=== PATIENT | male | born 1970 | race African-American/Black ===

== ENCOUNTER 2018-04-06 14:56 | Emergency (ER) | payer SELFPAY ==
--- NOTE | 2018-04-06 15:56 | ER ---
Nurse's Notes [facility] Name: Sixto Arredondo Age: 47 yrs Sex: Male : 1970 Arrival Date: 04/06/2018 Time: 14:59 Bed 15 Private MD: None, None Diagnosis: Mild dehydration Presentation: 04/06 15:14 Presenting complaint: Patient states: Headache and nausea this AM, that has resolved. aj "I just wanted to get checked out". Transition of care: patient was not received from another setting of care. Onset of symptoms was April 06, 2018. Risk Assessment: Do you want to hurt yourself or someone else? Patient reports no desire to harm self or others. Care prior to arrival: None. 15:14 Method Of Arrival: Ambulatory aj 15:14 Acuity: DELORES 4 aj Triage Assessment: 15:15 General: Appears in no apparent distress. comfortable, Behavior is calm, cooperative, aj appropriate for age. Pain: Complains of pain in face and scalp Pain currently is 4 out of 10 on a pain scale. Neuro: Level of Consciousness is awake, alert, obeys commands, Oriented to person, place, time, situation, Appropriate for age. Respiratory: Airway is patent Respiratory effort is even, unlabored, Respiratory pattern is regular, symmetrical. GI: Reports nausea. Derm: Skin is intact, is healthy with good turgor, Skin is pink, warm \\T\\ dry. normal. Historical: - Allergies: 15:15 No Known Allergies; aj - Home Meds: 15:15 None [Active]; aj - PMHx: 15:15 None; aj - PSHx: 15:15 None; aj - Immunization history:: Adult Immunizations up to date. - Social history:: Smoking status: Patient uses tobacco products, smokes one-half pack cigarettes per day, Patient uses alcohol, weekly. Patient/guardian denies using street drugs. - Ebola Screening: : Patient negative for fever greater than or equal to 101.5 degrees Fahrenheit, and additional compatible Ebola Virus Disease symptoms Patient denies exposure to infectious person Patient denies travel to an Ebola-affected area in the 21 days before illness onset No symptoms or risks identified at this time. Vital Signs: 15:15 BP 169 / 119; Pulse 83; Resp 16; Temp 98.6; Pulse Ox 98% on R/A; Weight 88.45 kg; aj Height 5 ft. 5 in. (165.10 cm); 15:15 Body Mass Index 32.45 (88.45 kg, 165.10 cm) aj ED Course: 14:59 Patient arrived in ED. mr 14:59 None, None is Private Physician. mr 15:15 Triage completed. aj 15:15 Arm band placed on right wrist. Patient placed in waiting room, Patient notified of wait time. 15:33 Alec Grady MD is Attending Physician. kdr 16:03 Nevaeh Cuellar, RN is Primary Nurse. jl7 Administered Medications: No medications were administered Outcome: 15:55 Discharge ordered by . kdr 16:03 Medical screen evaluation completed per provider. Patient declined treatment. jl7 16:31 Patient left the ED. jl7 Signatures: Tricia Agudelo, RN RN Alec Durham MD MD kdr Rivera, Maria mr Nevaeh Cuellar RN RN jl7
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
[2018-04-06 16:35] VITALS: BP 169/119; TEMP 98.6; O2SAT 98
== END 2018-04-06 16:31 | disposition home or self-care (01) ==
LOC: ER 14:56
DX: E86.0 Dehydration (principal); F17.210 Nicotine dependence, cigarettes, uncomplicated
CPT/HCPCS: 99281

== ENCOUNTER 2023-06-02 12:06 | Emergency (ER) | payer SELFPAY ==
--- OUTSIDE RECORDS SUMMARY | 2023-06-02 12:10 | XMS REPORT | Continuity of Care Document ---
:1970 Author Organization [facility] t Address [address] [facility] [address] [place] [id number] Care Team Providers Name Role Phone SAMEER CELESTIN Attending Clinician Unavailable NURSE, NURSE Attending Clinician Unavailable Problems This patient has no known problems. Allergies, Adverse Reactions, Alerts This patient has no known allergies or adverse reactions. Social History Social Habit Start Date Stop Date Quantity Comments [facility] Status Start Date Stop Date Source Unknown if [facility] Medications This patient has no known medications. Procedures This patient has no known procedures. Encounters Start End Encounter Admission Attending Care Care Encounter Source Date/Time Date/Time Type Type Clinicians Facility Department ID 2022-05-05 2022-05-05 Outpatient ELIZABETH CELESTIN [id number] Elizabeth 08:00:00 08:00:00 SAMEER moore 2021-01-06 2021-01-06 Outpatient NURSE, [facility] [id number] Access 13:56:00 13:56:00 NURSE [facility] 2021-01-06 2021-01-06 Outpatient NURSE, [facility] [id number] Access 13:56:00 13:56:00 NURSE [id number] [facility] [id number] Results This patient has no known results.
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
[2023-06-02 13:49] VITALS: BP 167/113; TEMP 98.8; O2SAT 96
== END 2023-06-02 13:44 | disposition home or self-care (01) ==
LOC: ER 12:06
DX: S16.1XXA Strain of muscle, fascia and tendon at neck level, initial encounter (principal); S39.012A Strain of muscle, fascia and tendon of lower back, initial encounter; V43.52XA Car driver injured in collision with other type car in traffic accident, initial encounter; Z88.0 Allergy status to penicillin; F17.210 Nicotine dependence, cigarettes, uncomplicated
CPT/HCPCS: 72040; 72100

== ENCOUNTER 2024-09-03 13:11 | Emergency (ER) | payer OTHER, SELFPAY ==
--- OUTSIDE RECORDS SUMMARY | 2024-09-03 13:14 | XMS REPORT | Continuity of Care Document ---
Author Name Unknown Address [address] [place] [address]. [address] [facility] Address [address] [facility] [place] [address] [place] [address] Care Team Providers Care Bar Turner Name Role Phone DWIGHT ADHIKARI Attending Clinician Unavaildavida JAEGER MD Attending Clinician UnavailCARLITO Sanders Attending Clinician Unavaila ble LAB53 Attending Clinician Unavailable JAMIR VERDUGO Attending Clinician Unavailable LAB47 Attending Clinician Unavailable SAMEER CELESTIN Attending Clinician Unavailable NURSE, NURSE Attending Clinician Unavailable Payers Payer Name Policy Type Policy Number Effective Date Expirati on Date Source [facility] FABI SZYMANSKI COPAY FOCUS 9 [id number] 2024 00:00:00 Problems Condition Name Condition Details Condition Category Status Onset Date Resolution Date Last Treatment Date Treating Clinician Comments Source Type 2 diabetes mellitus with hyperlipid emia (multi HCC) Type 2 diabetes mellitus with hyperlipid emia (multi HCC) Disease Active 2023-10 00:00: 00 April coronel Type 2 diabetes mellitus without complicati on, without long-term current use of insulin (multi HCC) Type 2 diabetes mellitus without complicati on, without long-term current use of insulin (multi HCC) Disease Active 04-09 00:00: 00 April coronel Social History Social Habit Start Date Stop Date Quantity Comments Source Sexual orientation Sandra Encarnacion - External History of tobacco use Cigarette Smoker April saleem - External Alcoholic beverage intake 2024-08-14 00:00:00 2024-08-14 00:00:00 .57 /d April Duran History of Social function 2024-08-14 00:00:00 2024-08-14 00:00:00 April Duran Alcohol Comment 2024-04-06 00:00:00 2024-04-06 00:00:00 Occasional April Duran Cigarettes smoked current (pack per day) - Reported 2024-04-06 00:00:00 2024-04-06 00:00:00 April Valdes External Cigarette pack-years 2024-04-06 00:00:00 2024-04-06 00:00:00 April Encarnacion - External Tobacco use and exposure 2024-04-06 00:00:00 2024-04-06 00:00:00 Smokeless tobacco non-user April Encarnacion - External Sex 2022-05-04 11:54:32 2022-05-04 11:54:32 Male (finding) April Encarnacion - External Sex [birth year] at 1970 00:00:00 1970 00:00:00 April Valdes External Smoking Status Start Date Stop Date Source Unknown if ever smoked [facility] Smokes tobacco daily 2024-04-06 00:00:00 April Duran Medications Ordered Medication Name Filled Medication Name Start Date Stop Date Current Medication? Ordering Clinician Indication Dosage Frequency Signature (SIG) Comments Components Source Losartan Potassium-H CTZ 100-25 MG oral Tablet 2023-10 00:00: 00 Yes [id number] 1{tbl} QD Take 1 tablet by mouth daily. April coronel Metformin HCl 500 MG oral Tablet 2023-10 00:00: 00 Yes [id number] 500mg Q.5D Take 1 tablet (500 mg total) by mouth 2 times daily. April coronel Atorvastati n Calcium 20 MG oral Tablet 04-09 00:00: 00 Yes [id number] 20mg QD Take 1 tablet (20 mg total) by mouth daily. April coronel Glucose Blood in vitro Strip 04-09 00:00: 00 Yes [id number] 1{each} QD 1 each by other route daily. April coronel Blood Glucose Monitoring Suppl (Blood Glucose Monitor System) w/Device does not apply Kit 04-09 00:00: 00 Yes [id number] Monitor blood glucose daily and as needed. April coronel Lancets does not apply Misc 04-09 00:00: 00 Yes [id number] 1{devic e} QD 1 device by other route daily to check sugars. April coronel Losartan Potassium (COZAAR) 50 MG oral Tablet 04-06 00:00: 00 08-14 00:00 :00 No [id number] 50mg QD Take 1 tablet (50 mg total) by mouth daily. April coronel Metformin HCl 500 MG oral Tablet 04-03 00:00: 00 Yes [id number] 500mg Q.5D Take 1 tablet (500 mg total) by mouth 2 times daily. April coronel Vital Signs Vital Name Observation Time Observation Value Comments S ource Systolic blood pressure 2024-08-14 19:56:00 186 mm[Hg] April rlo ld - External Diastolic blood pressure 2024-08-14 19:56:00 116 mm[Hg] April Garcia ld - External Heart rate 2024-08-14 19:56:00 62 /min Jessie noam Portillorlharper - External Body temperature 2024-08-14 19:56:00 36.56 Tanna April Encarnacion - External Respiratory rate 2024-08-14 19:56:00 16 /min April Encarnacion - External Body height 2024-08-14 19:56:00 167.6 cm Maral ey ybold - External Body weight 2024-08-14 19:56:00 84.46 kg Maral adebayo Portilloybold - External BMI 2024-08-14 19:56:00 30.05 kg/m2 Maral fiore Seybold - External Systolic blood pressure 2024-07-24 18:51:00 180 mm[Hg] Apriljono Tilleyo ld - External Diastolic blood pressure 2024-07-24 18:51:00 119 mm[Hg] April rlo ld - External Heart rate 2024-07-24 18:51:00 69 /min Kelse y Seybold - External Body temperature 2024-07-24 18:51:00 37 Tanna April Seybold - External Respiratory rate 2024-07-24 18:51:00 18 /min April Seybold - External Body weight 2024-07-24 18:51:00 84.823 kg Maral ey Seybold - External BMI 2024-07-24 18:51:00 30.18 kg/m2 Maral ey Seybold - External Oxygen saturation in Arterial blood by Pulse oximetry 2024-07-24 18:51:00 98 /min April Seybo ld - External Systolic blood pressure 2024-04-06 19:53:00 168 mm[Hg] April Seybo ld - External Diastolic blood pressure 2024-04-06 19:53:00 105 mm[Hg] April Seybo ld - External Heart rate 2024-04-06 19:49:00 72 /min Kelse y Seybold - External Body temperature 2024-04-06 19:49:00 36.28 Tanna April Seybold - External Respiratory rate 2024-04-06 19:49:00 16 /min April Seybold - External Body height 2024-04-06 19:49:00 167.6 cm Maral ey Seybold - External Body weight 2024-04-06 19:49:00 88.451 kg Maral ey Seybold - External BMI 2024-04-06 19:49:00 31.47 kg/m2 Maral ey Seybold - External Encounters Start Date/Time End Date/Time Encounter Type Admission Type Attending [facility] Care Department Encounter ID Source 2024-08-26 00:00:00 2024-08-26 00:00:00 Outpatient DWIGHT ADHIKARI [id number] April Seybharper 2024-08-14 15:00:00 2024-08-14 15:00:00 Outpatient DWIGHT ADHIKARI [id number] April Seybharper 2024-08-07 15:30:00 2024-08-07 15:30:00 Outpatient DWIGHT ADHIKARI [id number] April Seybold 2024-08-07 00:00:00 2024-08-07 00:00:00 Outpatient MD APRIL GUERRA [id number] April [facility] 2024-07-28 16:30:00 2024-07-28 16:30:00 Outpatient ZEYNEP DWIGHTPearl JOHNSON [id number] April [facility] 2024-07-24 15:00:00 2024-07-24 15:00:00 Outpatient DORCAS CARLITO APRIL JOHNSON [id number] April [facility] 2024-07-24 14:15:00 2024-07-24 14:15:00 Outpatient LAB53 APRIL JOHNSON [id number] April [facility] 2024-07-24 13:30:00 2024-07-24 13:30:00 Outpatient JAMIR VERDUGO APRIL JOHNSON [id number] [facility] 2024-07-13 13:30:00 2024-07-13 13:30:00 Outpatient DWIGHT ADHIKARI [id number] [facility] 2024-04-06 15:40:00 2024-04-06 15:40:00 Outpatient RACHEL APRIL JOHNSON [id number] [facility] 2024-04-06 14:30:00 2024-04-06 14:30:00 Outpatient ZEYNEP DWIGHTTOY JOHNSON [id number] [facility] 2022-05-05 08:00:00 2022-05-05 08:00:00 Outpatient SABISAMEER APRIL JOHNSON [id number] [facility] 2021-01-06 13:56:00 2021-01-06 13:56:00 Outpatient NURSE, NURSE [facility] [id number] [facility] 2021-01-06 13:56:00 2021-01-06 13:56:00 Outpatient NURSE, NURSE [facility] [id number] [facility] Notes Date/Time Note Provider Source 2024-08-14 14:56:23 Magan Arredodno is a 54 year old male Chief Complaint Patient presents with Follow-Up Visit BP Alyson Drake CMA II [facility] 2024-07-24 13:52:39 Chief Complaint Patient presents with Follow-up Fasting Jeffrey Kaminski LVN [facility] 2024-04-06 14:52:09 Magan Arredondo is a 53 year old male Chief Complaint Patient presents with Physical Fasting Alyson Drake CMA II [facility]
--- NOTE | 2024-09-03 15:01 | RAD REPORT ---
EXAMINATION: ONE VIEW CHEST XR CLINICAL INDICATION: Male, 54 years old.,COUGH TECHNIQUE: Frontal chest projection is submitted. Examination is limited by patient positioning and t echnique. COMPARISON: 10/12/2017 FINDINGS: The lungs are well inflated and clear. No pneumothorax or sizable effusion. The heart is normal in s ize. Mediastinal contours are unremarkable. IMPRESSION: No acute intrathoracic abnormalities.
[2024-09-03] MEDS ORDERED: NA CHLORIDE 0.9% 500 ML ONE (16:12)
[2024-09-03 16:13] LABS: Absolute Eosinophils 0.1 K/uL (0-0.5); Absolute Lymphocytes (CBC) 3.8 K/uL (0.7-4.9); Absolute Monocytes 0.7 K/uL (0.1-1.3); Absolute Neutrophil 4.4 K/uL (1.8-8.0); Basophils % 0.5 % (0-1.3); Hematocrit 42.8 % (39.6-49.0); Hemoglobin 13.9 g/dL (13.6-17.9); MCH 27.9 pg (27.0-35.0); MCHC 32.5 g/dL (32.0-36.0); MCV 85.9 fL (80-100); MPV 7.7 fL (7.6-11.3); Monocytes % 7.3 % (3.3-12.3); Neutrophils % 49.2 % (41.7-73.7); Platelets 263 thou/uL (152-406); RBC Red Blood Cell Count 4.98 M/uL (4.33-5.43)
[2024-09-03 16:16] LABS: PT Prothrombin Time 12.2 SECONDS (9.4-12.5); Protime INR 1.09
[2024-09-03 16:32] LABS: ALT/SGPT 30 U/L (16-61); AST/SGOT 16 U/L (15-37); Albumin 3.6 g/dL (3.4-5.0); Albumin/Globulin Ratio 0.9 (1.1-1.8); Alkaline Phosphatase 61 U/L (45-117); Anion Gap 8.4 mEq/L (5.0-15.0); BUN Blood Urea Nitrogen 16 mg/dL (7-18); Bicarbonate 26 mEq/L (21-32); Bilirubin Total 0.3 mg/dL (0.2-1.0); Glomerular Filtration Rate 78 ml/min (=/>90); Glucose Level 167 mg/dL (74-106); NT PRO-BNP 10 pg/mL (<125); Potassium 3.4 mEq/L (3.5-5.1); Protein, Total 7.6 g/dL (6.4-8.2); Sodium Level 137 mEq/L (136-145); Troponin High Sensitivity 5.8 pg/mL (<58.9)
[2024-09-03 16:33] LABS: Bilirubin Direct < 0.2 mg/dL (0-0.2); Bilirubin Indirect, Calculated 0.1 mg/dL (0.2-0.8)
--- NOTE | 2024-09-03 16:47 | ER ---
Nurse's Notes [facility] Name: Sixto Arredondo Age: 54 yrs Sex: Male : 1970 Arrival Date: 09/03/2024 Time: 13:11 Bed 13 Private MD: Diagnosis: Essential (primary) hypertension;Hypokalemia Presentation: 09/03 13:46 Chief complaint: Patient states: Called into work yesterday because was having a cm10 headache and said, "I feel like my blood pressure is high." Pt denies chest pain or shortness of breath and states that he feels better. Coronavirus screen: Client denies travel out of the [place] in the last 14 days. Ebola Screen: Patient denies travel to an Ebola-affected area in the 21 days before illness onset. No symptoms or risks identified at this time. Initial Sepsis Screen: Does the patient meet any 2 criteria? No. Patient's initial sepsis screen is negative. Does the patient have a suspected source of infection? No. Patient's initial sepsis screen is negative. Risk Assessment: Do you want to hurt yourself or someone else? Patient reports no desire to harm self or others. Onset of symptoms was September 03, 2024. 13:46 Method Of Arrival: Ambulatory cm10 13:46 Acuity: DELORES 3 cm10 Triage Assessment: 13:49 General: Appears in no apparent distress. comfortable, Behavior is calm, cooperative. cm10 Neuro: No deficits noted. Level of Consciousness is awake, alert, obeys commands, Oriented to person, place, time, situation, Appropriate for age. Respiratory: No deficits noted. Airway is patent Respiratory effort is even, unlabored, Respiratory pattern is regular, symmetrical. Historical: - Allergies: 13:47 PENICILLINS; cm10 - Home Meds: 13:47 losartan-hydrochlorothiazide oral [Active]; Metformin Oral [Active]; atorvastatin oral cm10 [Active]; - PMHx: 13:47 Diverticulitis; Diabetes mellitus; Hypertensive disorder; Hypercholesterolemia; cm10 - Immunization history:: Adult Immunizations up to date. - Infectious Disease History:: Denies. - Social history:: Smoking status: Patient reports the use of cigarette tobacco products, smokes one-half pack cigarettes per day. Screenin:33 [facility] ED Fall Risk Assessment (Adult) History of falling in the last 3 months, tl4 including since admission No falls in past 3 months (0 pts) Confusion or Disorientation No (0 pts) Intoxicated or Sedated No (0 pts) Impaired Gait No (0 pts) Mobility Assist Device Used No (0 pt) Altered Elimination No (0 pt) Score/Fall Risk Level 0 - 2 = Low Risk Oriented to surroundings, Maintained a safe environment, Educated pt \\T\\ family on fall prevention, incl call for assistance when getting out of bed, Assessed \\T\\ reinforced patient's understanding of fall precautions. Abuse screen: Denies threats or abuse. Denies injuries from another. Nutritional screening: No deficits noted. Tuberculosis screening: No symptoms or risk factors identified. Assessment: 16:29 General: Appears in no apparent distress. Behavior is calm, cooperative. Pain: tl4 Complains of pain in head. Neuro: Level of Consciousness is awake, alert, obeys commands, Oriented to person, place, time, situation, Moves all extremities. Full function Speech is normal, Facial symmetry appears normal, Reports headache Denies weakness blurred vision dizziness, paresthesias numbness photophobia. Cardiovascular: Denies chest pain, diaphoresis, Capillary refill < 3 seconds Patient's skin is warm and dry. Respiratory: Airway is patent Respiratory effort is even, unlabored, Respiratory pattern is regular, symmetrical, Breath sounds are clear bilaterally. GI: No signs and/or symptoms were reported involving the gastrointestinal system. : No signs and/or symptoms were reported regarding the genitourinary system. EENT: No signs and/or symptoms were reported regarding the EENT system. Derm: No signs and/or symptoms reported regarding the dermatologic system. Musculoskeletal: No signs and/or symptoms reported regarding the musculoskeletal system. Vital Signs: 13:46 BP 144 / 97; Pulse 74; Resp 16; Temp 98.3; Pulse Ox 99% on R/A; Weight 81.65 kg; Height cm10 5 ft. 6 in. ; Pain 4/10; 16:00 BP 147 / 96; Pulse 69; Resp 18; Pulse Ox 99% on R/A; Pain 2/10; tl4 17:13 BP 166 / 90; Pulse 70; Resp 16; Temp 97.6(O); Pulse Ox 99% on R/A; tl4 13:46 Body Mass Index 29.05 (81.65 kg, 167.64 cm) cm10 13:46 Pain Scale: Adult cm10 16:00 Pain Scale: Adult tl4 Vitals: 16:00 Cardiac Rhythm Assessment Regular Sinus rhythm. tl4 ED Course: 13:27 Patient arrived in ED. mg5 13:28 Tristan Hillman MD is Attending Physician. facundo 13:47 Triage completed. cm10 13:49 Arm band placed on right wrist. Patient placed in waiting room. cm10 14:57 XRAY Chest (1 view) In Process Unspecified. EDMS 15:16 Aly Calvin, RN is Primary Nurse. tl4 16:08 Basic Metabolic Panel Sent. tl4 16:08 CBC with Diff Sent. tl4 16:08 LFT's Sent. tl4 16:08 Magnesium Sent. tl4 16:08 NT PRO-BNP Sent. tl4 16:08 PT-INR Sent. tl4 16:08 Troponin HS Sent. tl4 16:23 Initial lab(s) drawn, by me, sent to lab. EKG done, by ED staff, reviewed by Tristan Hillman MD. Inserted saline lock: 22 gauge in right antecubital area, using aseptic technique. Blood collected. Flushed with 10 mL NS. 16:33 Patient has correct armband on for positive identification. Placed in gown. Bed in low tl4 position. Call light in reach. Side rails up X 1. Provided Education on: call hawley, ed process. Client placed on continuous cardiac and pulse oximetry monitoring. NIBP monitoring applied. ekg monitor on. Door closed. Noise minimized. Lights dimmed. Moved to private room. 16:34 No provider procedures requiring assistance completed. tl4 16:47 Rene Mathur MD is Referral Physician. facundo 17:13 IV discontinued, intact, bleeding controlled, No redness/swelling at site. Pressure tl4 dressing applied. Administered Medications: 16:22 Drug: NS 0.9% IV 500 ml IV at bolus once; to be given as a bolus over 30 minutes Route: tl4 IV; Rate: bolus; Site: right antecubital; 17:11 Follow up: Response: No adverse reaction; IV Status: Completed infusion; IV Intake: tl4 500ml 17:00 Drug: Potassium PO Effervescent Tablet 25 mEq PO once; dissolve in 4 ounces of water or tl4 juice Route: PO; 17:11 Follow up: Response: No adverse reaction tl4 Medication: 16:33 VIS not applicable for this client. tl4 Intake: 17:11 IV: 500ml; Total: 500ml. tl4 Outcome: 16:46 Discharge ordered by . facundo 17:14 Discharged to home ambulatory, tl4 17:14 Condition: stable 17:14 Discharge instructions given to patient, Instructed on discharge instructions, follow up and referral plans. Demonstrated understanding of instructions, follow-up care, 17:14 Patient left the ED. tl4 Signatures: Dispatcher [employer] Tristan Bonds MD MD cha Martinez, Clarissa, RN RN cm10 Catherine Kat mg5 Aly Calvin RN RN tl4
--- NOTE | 2024-09-03 16:47 | EDPHYS ---
Physician Documentation [facility] Name: Sixto Arredondo Age: 54 yrs Sex: Male : 1970 Arrival Date: 09/03/2024 Time: 13:11 Bed 13 Private MD: HUONG Physician Tristan Hillman HPI: 09/03 16:42 This 54 yrs old Black Male presents to ER via Ambulatory with complaints of High Blood facundo Pressure. 16:42 The patient has elevated blood pressure and discovered this at home. Onset: The facundo symptoms/episode began/occurred 2 day(s) ago. Modifying factors: The symptoms are aggravated by activity, The symptoms are alleviated by remaining still. Associated signs and symptoms: The patient has no apparent associated signs or symptoms. The patient has experienced similar episodes in the past, multiple times. Historical: - Allergies: 13:47 PENICILLINS; cm10 - Home Meds: 13:47 losartan-hydrochlorothiazide oral [Active]; Metformin Oral [Active]; atorvastatin oral cm10 [Active]; - PMHx: 13:47 Diverticulitis; Diabetes mellitus; Hypertensive disorder; Hypercholesterolemia; cm10 - Immunization history:: Adult Immunizations up to date. - Infectious Disease History:: Denies. - Social history:: Smoking status: Patient reports the use of cigarette tobacco products, smokes one-half pack cigarettes per day. ROS: 16:43 Constitutional: Negative for fever, chills, and weight loss, Eyes: Negative for injury, facundo pain, redness, and discharge, ENT: Negative for injury, pain, and discharge, Neck: Negative for injury, pain, and swelling, Cardiovascular: Negative for chest pain, palpitations, and edema, Respiratory: Negative for shortness of breath, cough, wheezing, and pleuritic chest pain, Abdomen/GI: Negative for abdominal pain, nausea, vomiting, diarrhea, and constipation, Back: Negative for injury and pain, : Negative for injury, bleeding, discharge, and swelling, MS/Extremity: Negative for injury and deformity, Skin: Negative for injury, rash, and discoloration, Neuro: Negative for headache, weakness, numbness, tingling, and seizure, Psych: Negative for depression, anxiety, suicide ideation, homicidal ideation, and hallucinations, Allergy/Immunology: Negative for hives, rash, and allergies, Endocrine: Negative for neck swelling, polydipsia, polyuria, polyphagia, and marked weight changes, Hematologic/Lymphatic: Negative for swollen nodes, abnormal bleeding, and unusual bruising, Exam: 16:43 Constitutional: This is a well developed, well nourished patient who is awake, alert, facundo and in no acute distress. Head/Face: Normocephalic, atraumatic. Eyes: Pupils equal round and reactive to light, extra-ocular motions intact. Lids and lashes normal. Conjunctiva and sclera are non-icteric and not injected. Cornea within normal limits. Periorbital areas with no swelling, redness, or edema. ENT: Nares patent. No nasal discharge, no septal abnormalities noted. Tympanic membranes are normal and external auditory canals are clear. Oropharynx with no redness, swelling, or masses, exudates, or evidence of obstruction, uvula midline. Mucous membranes moist. Neck: Trachea midline, no thyromegaly or masses palpated, and no cervical lymphadenopathy. Supple, full range of motion without nuchal rigidity, or vertebral point tenderness. No Meningismus. Chest/axilla: Normal chest wall appearance and motion. Nontender with no deformity. No lesions are appreciated. Cardiovascular: Regular rate and rhythm with a normal S1 and S2. No gallops, murmurs, or rubs. Normal PMI, no JVD. No pulse deficits. Respiratory: Lungs have equal breath sounds bilaterally, clear to auscultation and percussion. No rales, rhonchi or wheezes noted. No increased work of breathing, no retractions or nasal flaring. Abdomen/GI: Soft, non-tender, with normal bowel sounds. No distension or tympany. No guarding or rebound. No evidence of tenderness throughout. Back: No spinal tenderness. No costovertebral tenderness. Full range of motion. Male : Normal genitalia with no discharge or lesions. Skin: Warm, dry with normal turgor. Normal color with no rashes, no lesions, and no evidence of cellulitis. MS/ Extremity: Pulses equal, no cyanosis. Neurovascular intact. Full, normal range of motion. Neuro: Awake and alert, GCS 15, oriented to person, place, time, and situation. Cranial nerves II-XII grossly intact. Motor strength 5/5 in all extremities. Sensory grossly intact. Cerebellar exam normal. Normal gait. Psych: Awake, alert, with orientation to person, place and time. Behavior, mood, and affect are within normal limits. 16:43 ECG was reviewed by the Attending Physician. Vital Signs: 13:46 BP 144 / 97; Pulse 74; Resp 16; Temp 98.3; Pulse Ox 99% on R/A; Weight 81.65 kg; Height cm10 5 ft. 6 in. ; Pain 4/10; 16:00 BP 147 / 96; Pulse 69; Resp 18; Pulse Ox 99% on R/A; Pain 2/10; tl4 17:13 BP 166 / 90; Pulse 70; Resp 16; Temp 97.6(O); Pulse Ox 99% on R/A; tl4 13:46 Body Mass Index 29.05 (81.65 kg, 167.64 cm) cm10 13:46 Pain Scale: Adult cm10 16:00 Pain Scale: Adult tl4 MDM: 13:28 Medical Screening Exam initiated facundo 16:44 Differential diagnosis: hypertensive crisis, Malignant HTN. Data reviewed: vital signs, [facility] nurses notes, lab test result(s), EKG, radiologic studies, plain films. Consideration of Admission/Observation Escalation of care including admission/observation considered. I considered the following discharge prescriptions or medication management in the emergency department Medications were administered in the Emergency Department. See MAR. Independent interpretation of the following test(s) in the Emergency Department EKG: See my EKG interpretation above. Historians other than the Patient: PT WELL INFORMED. Care significantly affected by the following chronic conditions: Diabetes, Hypertension, HIGH CHOLESTEROL. Counseling: I had a detailed discussion with the patient and/or guardian regarding the historical points, exam findings, and any diagnostic results supporting the discharge/admit diagnosis, lab results. 09/03 13:29 Order name: Basic Metabolic Panel; Complete Time: 16:41 [facility] 09/03 13:29 Order name: CBC with Diff; Complete Time: 16:41 [facility] 09/03 13:29 Order name: LFT's; Complete Time: 16:41 [facility] 09/03 13:29 Order name: Magnesium; Complete Time: 16:41 [facility] 09/03 13:29 Order name: NT PRO-BNP; Complete Time: 16:41 facundo 09/03 13:29 Order name: PT-INR; Complete Time: 16:41 facundo 09/03 13:29 Order name: Troponin HS; Complete Time: 16:41 [facility] 09/03 13:29 Order name: XRAY Chest (1 view); Complete Time: 16:41 [facility] 09/03 13:29 Order name: Cardiac monitoring; Complete Time: 16: facundo 09/03 13:29 Order name: EKG - Nurse/Tech; Complete Time: 16:22 facundo 09/03 13:29 Order name: IV Saline Lock; Complete Time: 16: facundo 09/03 13:29 Order name: Labs collected and sent; Complete Time: 16: [facility] 09/03 13:29 Order name: O2 Per Protocol; Complete Time: 16: [facility] 09/03 13:29 Order name: O2 Sat Monitoring; Complete Time: 16: [facility] EC:43 Rate is 68 beats/min. Rhythm is regular. QRS [place] is Normal. NC interval is normal. QRS facundo interval is normal. No Q waves. T waves are Normal. No ST changes noted. Clinical impression: NSR w/ Non-specific ST/T Changes and No evidence of ischemia. Interpreted by me. Reviewed by me. Administered Medications: 16:22 Drug: NS 0.9% IV 500 ml IV at bolus once; to be given as a bolus over 30 minutes Route: tl4 IV; Rate: bolus; Site: right antecubital; 17:11 Follow up: Response: No adverse reaction; IV Status: Completed infusion; IV Intake: tl4 500ml 17:00 Drug: Potassium PO Effervescent Tablet 25 mEq PO once; dissolve in 4 ounces of water or tl4 juice Route: PO; 17:11 Follow up: Response: No adverse reaction tl4 Disposition Summary: 09/03/24 16:46 Discharge Ordered Notes: Location: Home facundo Problem: new facundo Symptoms: have improved facundo Condition: Stable facundo Diagnosis - Essential (primary) hypertension facundo - Hypokalemia facundo Followup: facundo - With: Private Physician - When: 2 - 3 days - Reason: Recheck today's complaints, Continuance of care, Re-evaluation by your physician Followup: facundo - With: Rene Mathur MD - When: 2 - 3 days - Reason: Recheck today's complaints, Re-evaluation by your physician Discharge Instructions: - Discharge Summary Sheet facundo - Potassium Content of Foods facundo - Hypertension, Adult facundo - Hypertension, Adult, [id number] facundo - How to Take Your Blood Pressure, Qryw-[id number] facundo - Hypokalemia facundo - Managing Your Hypertension facundo Forms: - Medication Reconciliation Form facundo - Antibiotic Education facundo - Prescription Opioid Use facundo - Patient Portal Instructions facundo - Leadership Thank You Letter facundo - Work release form tl4 Signatures: Dispatcher [employer] Tristan Bonds MD MD cha Martinez, Clarissa, RN RN cm10 Aly Calvin RN RN tl4 Corrections: (The following items were deleted from the chart) 13:30 13:30 BASIC METABOLIC PANEL+C.LAB.BRZ ordered. EDMS EDMS 13:30 13:30 CBC+H.LAB.BRZ ordered. EDMS EDMS 13:30 13:30 HEPATIC FUNCTION+C.LAB.BRZ ordered. EDMS EDMS 13:30 13:30 MAGNESIUM+C.LAB.BRZ ordered. EDMS EDMS 13:30 13:30 PROBNP+C.LAB.BRZ ordered. EDMS EDMS 13:30 13:30 PROTIME (+INR)+COAG.LAB.BRZ ordered. EDMS EDMS 13:30 13:30 Troponin High Sensitivity+C.LAB.BRZ ordered. EDMS EDMS 13:30 13:30 Urinalysis+U.LAB.BRZ ordered. EDMS EDMS 13:30 13:30 Chest Single View+RAD.RAD.BRZ ordered. EDMS EDMS
[2024-09-03] MEDS ORDERED: POTASSIUM 25 MEQ EFFERV TAB ONE (17:01)
[2024-09-03 17:28] VITALS: O2SAT 99
[2024-09-03 17:40] VITALS: BP 166/90; TEMP 97.6
--- NOTE | 2024-09-04 12:04 | EKG ---
Test Date: 2024-09-03 Test Time: 16:19:56 Group Home Paraprofessional: TL MEASUREMENT RESULTS: Intervals: Rate: 68 OH: 162 QRSD: 106 QT: 404 QTc: 429 [place]: P: 51 OH: 162 QRS: -30 T: 8 INTERPRETIVE STATEMENTS: Normal sinus rhythm Left axis deviation Nonspecific T wave abnormality Abnormal ECG Compared to ECG 10/12/2017 11:35:15 Left-axis deviation now present Left ventricular hypertrophy no longer present T-wave abnormality still present Electronically Signed On 09-04-24 12:02:55 GLASS BENDER by Miller Brunner
== END 2024-09-03 17:14 | disposition home or self-care (01) ==
LOC: ER 13:11
DX: I10 Essential (primary) hypertension (principal); E87.6 Hypokalemia; E11.9 Type 2 diabetes mellitus without complications
CPT/HCPCS: 93005; 85025; 80048; 36415; 83735; 85610; 80076; 84484; 83880; 71045; 96360; 99285; J7040

== ENCOUNTER 2024-11-24 10:46 | Emergency (ER) | payer OTHER ==
--- OUTSIDE RECORDS SUMMARY | 2024-11-24 10:50 | XMS REPORT | Continuity of Care Document ---
Author Name Unknown Address [address] [facility]. [address] th[address] Address [address] [facility] [address] [place] [address] Care Team Providers Care Bar Waiter/Waitress Name Role Phone DWIGHT ADHIKARI Attending Clinician UnavailDENNISE Rivera Attending Clinician Unavailable MD HEIDE Attending Clinician UnavailCARLITO Sanders Attending Clinician Unavaila ble LAB53 Attending Clinician Unavailable JAMIR VERDUGO Attending Clinician Unavailable LAB47 Attending Clinician Unavailable SAMEER CELESTIN Attending Clinician Unavailable NURSE, NURSE Attending Clinician Unavailable Payers Payer Name Policy Type Policy Number Effective Date Expirati on Date Source [facility] FABI SZYMANSKI COPAY FOCUS 9 [id number] 2024 00:00:00 Problems Condition Name Condition Details Condition Category Status Onset Date Resolution Date Last Treatment Date Treating Clinician Comments Source Essential hypertensi on Essential hypertensi on Disease Active 2023-10 00:00: 00 April coronel Type 2 diabetes mellitus with hyperlipid emia (multi HCC) Type 2 diabetes mellitus with hyperlipid emia (multi HCC) Disease Active 2023-10 0 00:00: 00 April coronel Type 2 diabetes mellitus without complicati on, without long-term current use of insulin (multi HCC) Type 2 diabetes mellitus without complicati on, without long-term current use of insulin (multi HCC) Disease Active 04-09 00:00: 00 April coronel Social History Social Habit Start Date Stop Date Quantity Comments Source Sexual orientation K elsey Shashank - External History of tobacco use Cigarette Smoker April Portillorl harper - External Alcoholic beverage intake 2024-10-02 00:00:00 2024-10-02 00:00:00 .57 /d April Shashank - External History of Social function 2024-10-02 00:00:00 2024-10-02 00:00:00 April Encarnacion - External Alcohol Comment 2024-04-06 00:00:00 2024-04-06 00:00:00 Occasional April Encarnacion - External Cigarettes smoked current (pack per day) - Reported 2024-04-06 00:00:00 2024-04-06 00:00:00 April Encarnacion - External Cigarette pack-years 2024-04-06 00:00:00 2024-04-06 00:00:00 April Encarnacion - External Tobacco use and exposure 2024-04-06 00:00:00 2024-04-06 00:00:00 Smokeless tobacco non-user April Encarnacion - External Sex 2022-05-04 11:54:32 2022-05-04 11:54:32 Male (finding) April Shashank - External Sex assigned at 1970 00:00:00 1970 00:00:00 April Encarnacion - External Smoking Status Start Date Stop Date Source Unknown if ever smoked Acces Maty Smokes tobacco daily 2024-04-06 00:00:00 April Encarnacion - External Medications Ordered Medication Name Filled Medication Name Start Date Stop Date Current Medication? Ordering Clinician Indication Dosage Frequency Signature (SIG) Comments Components Source Metformin HCl 500 MG oral Tablet 10-30 00:00: 00 Yes [id number] 500mg Q.5D Take 1 tablet (500 mg total) by mouth 2 times daily. April coronel Losartan Potassium-H CTZ 100-25 MG oral Tablet 10-30 00:00: 00 01-29 04:59 :00 Yes [id number] 1{tbl} QD Take 1 tablet by mouth daily. April coronel Amlodipine Besylate 10 MG oral Tablet 10-30 00:00: 00 01-29 04:59 :00 Yes [id number] 10mg QD Take 1 tablet (10 mg total) by mouth daily. April coronel Atorvastati n Calcium 20 MG oral Tablet 10-30 00:00: 00 12-26 05:59 :00 Yes [id number] 20mg QD Take 1 tablet (20 mg total) by mouth daily. April coronel Amlodipine Besylate (NORVASC) 5 MG oral Tablet 2023-10 00:00: 00 10-30 00:00 :00 No [id number] 5mg QD Take 1 tablet (5 mg total) by mouth daily. April coronel Losartan Potassium-H CTZ 100-25 MG oral Tablet 2023-10 00:00: 00 10-30 00:00 :00 No [id number] 1{tbl} QD Take 1 tablet by mouth daily. April coronel Atorvastati n Calcium 20 MG oral Tablet 2023-10 00:00: 00 10-30 00:00 :00 No [id number] 20mg QD Take 1 tablet (20 mg total) by mouth daily. April coronel Ondansetron (ZOFRAN) 4 MG oral TABLET DISPERSIBLE 2023-10 00:00: 00 Yes DISSOLVE 1 TABLET IN MOUTH EVERY 6 TO 8 HOURS NEEDED April coronel Pantoprazol e Sodium 40 MG oral Tablet Delayed Response 2023-10 00:00: 00 Yes 40mg QD Take 1 tablet (40 mg total) by mouth daily. April coronel Sucralfate 1 g oral Tablet 2023-10 00:00: 00 Yes TAKE 1 TABLET BY MOUTH 4 TIMES DAILY 30 MINUTES BEFORE MEALS AND BEFORE MBEDTIME DIRETCED April coronel Dicyclomine HCl 20 MG oral Tablet 2023-10 00:00: 00 Yes 20mg Q.25D Take 1 tablet (20 mg total) by mouth 4 times daily. April coronel Losartan Potassium-H CTZ 100-25 MG oral Tablet 2023-10 00:00: 00 10-02 00:00 :00 No [id number] 1{tbl} QD Take 1 tablet by mouth daily. April coronel Metformin HCl 500 MG oral Tablet 2023-10 00:00: 00 10-30 00:00 :00 No [id number] 500mg Q.5D Take 1 tablet (500 mg total) by mouth 2 times daily. April coronel Glucose Blood in vitro Strip 04-09 00:00: 00 Yes [id number] 1{each} QD 1 each by other route daily. April coronel Blood Glucose Monitoring Suppl (Blood Glucose Monitor System) w/Device does not apply Kit 04-09 00:00: 00 Yes [id number] Monitor blood glucose daily and as needed. April coronel Lancets does not apply Misc 04-09 00:00: 00 Yes [id number] 1{devic e} QD 1 device by other route daily to check sugars. April coronel Atorvastati n Calcium 20 MG oral Tablet 04-09 00:00: 00 Yes [id number] 20mg QD Take 1 tablet (20 mg total) by mouth daily. April coronel Losartan Potassium (COZAAR) 50 MG oral Tablet 04-06 00:00: 00 08-14 00:00 :00 No [id number] 50mg QD Take 1 tablet (50 mg total) by mouth daily. April coronel Metformin HCl 500 MG oral Tablet 04-03 00:00: 00 Yes [id number] 500mg Q.5D Take 1 tablet (500 mg total) by mouth 2 times daily. April coronel Vital Signs Vital Name Observation Time Observation Value Comments S herbert Systolic blood pressure 2024-10-30 15:39:00 158 mm[Hg] April dawn - External Diastolic blood pressure 2024-10-30 15:39:00 90 mm[Hg] April dawn - External Heart rate 2024-10-30 15:35:00 75 /min Jessie Encarnacion - External Body temperature 2024-10-30 15:35:00 35.56 Tanna April Seybold - External Respiratory rate 2024-10-30 15:35:00 16 /min April Seybold - External Body height 2024-10-30 15:35:00 167.6 cm Maral ey Seybold - External Body weight 2024-10-30 15:35:00 86.728 kg Maral ey Seybold - External BMI 2024-10-30 15:35:00 30.86 kg/m2 Maral ey Seybold - External Oxygen saturation in Arterial blood by Pulse oximetry 2024-10-30 15:35:00 97 /min April Seybo ld - External Systolic blood pressure 2024-10-02 22:20:00 168 mm[Hg] April Seybo ld - External Diastolic blood pressure 2024-10-02 22:20:00 89 mm[Hg] April Seybo ld - External Heart rate 2024-10-02 22:20:00 98 /min Kelse y Seybold - External Body temperature 2024-10-02 22:20:00 37.06 Tanna April Seybold - External Respiratory rate 2024-10-02 22:20:00 16 /min April Seybold - External Body height 2024-10-02 22:20:00 167.6 cm Maral ey Seybold - External Body weight 2024-10-02 22:20:00 83.915 kg Maral ey Seybold - External BMI 2024-10-02 22:20:00 29.86 kg/m2 Maral ey Seybold - External Oxygen saturation in Arterial blood by Pulse oximetry 2024-10-02 22:20:00 97 /min April Seybo ld - External Systolic blood pressure 2024-08-14 19:56:00 186 mm[Hg] April Seybo ld - External Diastolic blood pressure 2024-08-14 19:56:00 116 mm[Hg] April Seybo ld - External Heart rate 2024-08-14 19:56:00 62 /min Kelse y Seybold - External Body temperature 2024-08-14 19:56:00 36.56 Tanna April Seybold - External Respiratory rate 2024-08-14 19:56:00 16 /min April Seybold - External Body height 2024-08-14 19:56:00 167.6 cm Maral ey Seybold - External Body weight 2024-08-14 19:56:00 84.46 kg Maral ey Seybold - External BMI 2024-08-14 19:56:00 30.05 kg/m2 Maral ey Seybold - External Systolic blood pressure 2024-07-24 18:51:00 180 mm[Hg] April Seybo ld - External Diastolic blood pressure 2024-07-24 18:51:00 119 mm[Hg] April Seybo ld - External Heart rate 2024-07-24 18:51:00 [...] End Date/Time Encounter Type Admission Type Attending [facility] Care Department Encounter ID Source 2024-10-30 09:30:00 2024-10-30 09:30:00 Outpatient DWIGHT ADHIKARI APRIL JOHNSON [id number] [facility] 2024-10-26 15:30:00 2024-10-26 15:30:00 Outpatient DWIGHT ADHIKARI APRIL JOHNSON [id number] April [facility] 2024-10-23 16:00:00 2024-10-23 16:00:00 Outpatient DWIGHT ADHIKARI APRIL JOHNSON [id number] April [facility] 2024-10-11 00:00:00 2024-10-11 00:00:00 Outpatient APRIL JOHNSON [id number] April [facility] 2024-10-02 16:00:00 2024-10-02 16:00:00 Outpatient DENNISE CARRINGTON [facility] [id number] [facility]24-[facility]-02 15:30:00 2024-10-02 15:30:00 Outpatient DWIGHT ADHIKARI APRIL JOHNSON [id number] [facility] 2024-09-22 00:00:00 2024-09-22 00:00:00 Outpatient AMOR ADHIKARIPearl JOHNSON [id number] [facility] 2024-09-14 15:00:00 2024-09-14 15:00:00 Outpatient AMOR ADHIKARIPearl JOHNSON [id number] [facility] 2024-08-26 00:00:00 2024-08-26 00:00:00 Outpatient AMOR ADHIKARIPearl JOHNSON [id number] [facility] 2024-08-14 15:00:00 2024-08-14 15:00:00 Outpatient DWIGHT ADHIKARI [id number] [facility] 2024-08-07 15:30:00 2024-08-07 15:30:00 Outpatient DWIGHT ADHIKARI [id number] [facility] 2024-08-07 00:00:00 2024-08-07 00:00:00 Outpatient MD APRIL GUERRA [id number] [facility] 2024-07-28 16:30:00 2024-07-28 16:30:00 Outpatient DWIGHT ADHIKARI APRIL JOHNSON [id number] [facility] 2024-07-24 15:00:00 2024-07-24 15:00:00 Outpatient CARLITO TOSCANO APRIL JOHNSON [id number] [facility] 2024-07-24 14:15:00 2024-07-24 14:15:00 Outpatient STEVEN53 APRIL JOHNSON [id number] [facility] 2024-07-24 13:30:00 2024-07-24 13:30:00 Outpatient JAMIR VERDUGO APRIL JOHNSON [id number] [facility] 2024-07-13 13:30:00 2024-07-13 13:30:00 Outpatient DWIGHT ADHIKARI APRIL JOHNSON [id number] [facility] 2024-04-06 15:40:00 2024-04-06 15:40:00 Outpatient LAB47 APRIL JOHNSON [id number] [facility] 2024-04-06 14:30:00 2024-04-06 14:30:00 Outpatient DWIGHT ADHIKARI APRIL JOHNSON [id number] [facility] 2022-05-05 08:00:00 2022-05-05 08:00:00 Outpatient SAMEER CELESTIN APRIL JOHNSON [id number] [facility] 2021-01-06 13:56:00 2021-01-06 13:56:00 Outpatient NURSE, NURSE [facility] [id number] [facility] 2021-01-06 13:56:00 2021-01-06 13:56:00 Outpatient NURSE, NURSE [facility] [id number] [facility]
--- NOTE | 2024-11-24 11:08 | ER ---
Nurse's Notes [facility] Name: Sixto Arredondo Age: 54 yrs Sex: Male : 1970 Arrival Date: 11/24/2024 Time: 10:46 Bed IW1 Private MD: Diagnosis: Acute upper respiratory infection, unspecified;Essential (primary) hypertension Presentation: 11/24 10:59 Chief complaint: Patient states: Cough, BRADLEY, body aches for 2 days. States he needs a ll1 work release to go back to work. Coronavirus screen: Client denies travel out of the [place] in the last 14 days. At this time, the client does not indicate any symptoms associated with coronavirus-19. Ebola Screen: Patient denies travel to an Ebola-affected area in the 21 days before illness onset. Initial Sepsis Screen: Does the patient meet any 2 criteria? No. Patient's initial sepsis screen is negative. Does the patient have a suspected source of infection? No. Patient's initial sepsis screen is negative. Risk Assessment: Do you want to hurt yourself or someone else? Patient reports no desire to harm self or others. Onset of symptoms was November 23, 2024. 10:59 Method Of Arrival: Ambulatory ll1 10:59 Acuity: DELORES 4 ll1 Triage Assessment: 11:02 General: Appears uncomfortable, Behavior is calm, cooperative, appropriate for age, ll1 Reports fatigue for. Pain: Complains of pain in body Pain currently is 3 out of 10 on a pain scale. Quality of pain is described as aching. EENT: Reports nasal congestion. Neuro: Reports headache. Respiratory: Reports cough that is. Musculoskeletal: Reports body aches. Historical: - Allergies: 10:59 PENICILLINS; ll1 - PMHx: 10:59 diabetes mellitus; Diverticulitis; Hypercholesterolemia; Hypertensive disorder; ll1 - PSHx: 10:59 None; ll1 - Immunization history:: Adult Immunizations up to date. - Infectious Disease History:: Denies. - Social history:: Smoking status: Patient reports the use of cigarette tobacco products, smokes one pack cigarettes per day. Screenin:13 [facility] ED Fall Risk Assessment (Adult) History of falling in the last 3 months, ll1 including since admission No falls in past 3 months (0 pts) Confusion or Disorientation No (0 pts) Intoxicated or Sedated No (0 pts) Impaired Gait No (0 pts) Mobility Assist Device Used No (0 pt) Altered Elimination No (0 pt) Score/Fall Risk Level 0 - 2 = Low Risk Maintained a safe environment, Hourly rounding (assess needs \T\ fall precautionary measures) done. Abuse screen: Denies threats or abuse. Nutritional screening: No deficits noted. Tuberculosis screening: No symptoms or risk factors identified. Assessment: 11:13 Reassessment: No changes from previously documented assessment. Patient and/or family ll1 updated on plan of care and expected duration. Pain level reassessed. Patient is alert, oriented x 3, equal unlabored respirations, skin warm/dry/pink. Vital Signs: 10:59 BP 172 / 98; Pulse 81; Resp 17; Temp 97.1; Pulse Ox 100% ; Weight 86.18 kg; Height 5 ll1 ft. 6 in. ; Pain 3/10; 10:59 Body Mass Index 30.67 (86.18 kg, 167.64 cm) ll1 10:59 Pain Scale: Adult ll1 ED Course: 10:50 Patient arrived in ED. ra3 10:58 Nikos Rodriguez DO is Attending Physician. ms3 11:01 Triage completed. ll1 11:03 Arm band placed on. ll1 11:07 Aidan Toth DO is Referral Physician. ms3 11:13 No provider procedures requiring assistance completed. Patient did not have IV access ll1 during this emergency room visit. 11:14 Patient has correct armband on for positive identification. Provided Education on: ER ll1 procedures and process. Administered Medications: No medications were administered Medication: 11:14 VIS not applicable for this client. ll1 Outcome: 11:08 Discharge ordered by . ms3 11:13 Discharged to home ambulatory, ll1 11:13 Condition: stable 11:13 Discharge instructions given to patient, Instructed on discharge instructions, follow up and referral plans. Demonstrated understanding of instructions, follow-up care, 11:14 Patient left the ED. ll1 Signatures: Mgean Abad RN RN ll1 Nikos Rodriguez DO DO ms3 Beverly Jones ra3
--- NOTE | 2024-11-24 11:08 | EDPHYS ---
Physician Documentation [facility] Name: Sixto Arredondo Age: 54 yrs Sex: Male : 1970 Arrival Date: 11/24/2024 Time: 10:46 Bed IW1 Private MD: ED Physician Nikos Rodriguez HPI: 11/24 11:09 This 54 yrs old Black Male presents to ER via Ambulatory with complaints of Flu ms3 Symptoms. 11:09 Mr. Arredondo is seen in the Emergency Department for cough. He reports feeling better ms3 today. He mentions taking Ibuprofen, with the last dose taken yesterday morning. He reports not having nausea, vomiting, or diarrhea at present. The patient has a history of diabetes and high blood pressure. He expresses a desire for a note to return to work today.. Historical: - Allergies: : PENICILLINS; ll1 - PMHx: 10:59 diabetes mellitus; Diverticulitis; Hypercholesterolemia; Hypertensive disorder; ll1 - PSHx: :59 None; ll1 - Immunization history:: Adult Immunizations up to date. - Infectious Disease History:: Denies. - Social history:: Smoking status: Patient reports the use of cigarette tobacco products, smokes one pack cigarettes per day. ROS: 11:09 Constitutional: Negative for fever, and chills. Cardiovascular: Negative for chest ms3 pain, and palpitations. 11:09 MS/Extremity: Negative for injury and deformity, Skin: Negative for injury, rash, and discoloration, 11:09 ENT: Positive for sinus congestion, 11:09 Respiratory: Positive for cough, Exam: 11:09 Constitutional: This is a well developed, well nourished patient who is awake, alert, ms3 and in no acute distress. Cardiovascular: Regular rate and rhythm with a normal S1 and S2. No gallops, murmurs, or rubs. Normal PMI, no JVD. No pulse deficits. Respiratory: Lungs have equal breath sounds bilaterally, clear to auscultation and percussion. No rales, rhonchi or wheezes noted. No increased work of breathing, no retractions or nasal flaring. Abdomen/GI: Soft, non-tender, with normal bowel sounds. No distension or tympany. No guarding or rebound. No evidence of tenderness throughout. Skin: Warm, dry with normal turgor. Normal color with no rashes, no lesions, and no evidence of cellulitis. Vital Signs: 10:59 BP 172 / 98; Pulse 81; Resp 17; Temp 97.1; Pulse Ox 100% ; Weight 86.18 kg; Height 5 ll1 ft. 6 in. ; Pain 3/10; 10:59 Body Mass Index 30.67 (86.18 kg, 167.64 cm) ll1 10:59 Pain Scale: Adult ll1 MDM: 11:08 Medical Screening Exam initiated ms3 11:09 Differential Diagnosis: Influenza Upper Respiratory Infection Viral Syndrome. Data ms3 reviewed: vital signs, nurses notes, and as a result, I will discharge patient. Counseling: I had a detailed discussion with the patient and/or guardian regarding the historical points, exam findings, and any diagnostic results supporting the discharge/admit diagnosis, the need for outpatient follow up, to return to the emergency department if symptoms worsen or persist or if there are any questions or concerns that arise at home. Special discussion: I discussed with the patient/guardian in detail that at this point there is no indication for admission to the hospital. It is understood, however, that if the symptoms persist or worsen the patient needs to return immediately for re-evaluation. ED course: Patient states symptoms have improved since yesterday. Last ibuprofen dose was yesterday morning. Patient to follow-up with Dr. Toth in 2 to 3 days for reevaluation. Patient understands agrees with plan. All questions were answered. Return precautions discussed include worsening symptoms, or any other concerns. Patient is alert and oriented x 4, no apparent distress, nontoxic-appearing, speaking full sentences.. Administered Medications: No medications were administered Disposition Summary: 11/24/24 11:08 Discharge Ordered Notes: Location: Home ms3 Condition: Stable ms3 Diagnosis - Acute upper respiratory infection, unspecified ms3 - Essential (primary) hypertension ms3 Followup: ms3 - With: Aidan Toth DO - When: 2 - 3 days - Reason: Recheck today's complaints Discharge Instructions: - Discharge Summary Sheet ll1 - Hypertension, Adult ms3 - Upper Respiratory Infection, Adult ms3 - DASH Eating Plan ms3 Forms: - Work release form ll1 - Medication Reconciliation Form ms3 - Antibiotic Education ms3 - Prescription Opioid Use ms3 - Patient Portal Instructions ms3 - Leadership Thank You Letter ms3 Signatures: Dispatcher Megan Lawrence, RN RN ll1 Nikos Rodriguez DO DO ms3
[2024-11-24 12:13] VITALS: BP 172/98; TEMP 97.1; O2SAT 100
== END 2024-11-24 11:14 | disposition home or self-care (01) ==
LOC: ER 10:46
DX: J06.9 Acute upper respiratory infection, unspecified (principal); I10 Essential (primary) hypertension; F17.210 Nicotine dependence, cigarettes, uncomplicated
CPT/HCPCS: 99282

== ENCOUNTER 2025-01-09 11:24 | Emergency (ER) | payer OTHER ==
--- OUTSIDE RECORDS SUMMARY | 2025-01-09 11:27 | XMS REPORT | Continuity of Care Document ---
Author Name Unknown Address [address] [place] [address] [address] [place] [address] [facility] [place] Address [address] [address] [address] [place] [address] Care Team Providers Care Lead Generation Representative Name Role Phone TEZ CARLISLE Attending Clinician Unava ilable MD HEIDE Attending Clinician UnavailDWIGHT Marc Attending Clinician UnavailDENNISE Rivera Attending Clinician Unavailable CARLITO TOSCANO Attending Clinician Unavaila ble LAB53 Attending Clinician Unavailable JAMIR VERDUGO Attending Clinician Unavailable LAB47 Attending Clinician Unavailable SAMEER CELESTIN Attending Clinician Unavailable NURSE, NURSE Attending Clinician Unavailable Payers Payer Name Policy Type Policy Number Effective Date Expirati on Date Source [facility] FABI SZYMANSKI COPAY FOCUS 9 [id number] 2024 00:00:00 Problems Condition Name Condition Details [...] HCC) Disease Active 04-09 00:00: 00 April Seybold - Externa l Social History Social Habit Start Date Stop Date Quantity Comments Source Sexual orientation Sandra hanna Shashank - External History of tobacco use Cigarette Smoker April Portillorl saleem - External Alcoholic beverage intake 2024-10-02 00:00:00 2024-10-02 00:00:00 .57 /d April Shashank - External History of Social function 2024-10-02 00:00:00 2024-10-02 00:00:00 April Encarnacion - External Alcohol Comment 2024-04-06 00:00:00 2024-04-06 00:00:00 Occasional April Encarnacion - External Cigarettes smoked current (pack per day) - Reported 2024-04-06 00:00:00 2024-04-06 00:00:00 April Encarnacion - Roger Cigarette pack-years 2024-04-06 00:00:00 2024-04-06 00:00:00 April Encarnacion - External Tobacco use and exposure 2024-04-06 00:00:00 2024-04-06 00:00:00 Smokeless tobacco non-user April Portilloquan - External Sex 2022-05-04 11:54:32 2022-05-04 11:54:32 Male (finding) April Portilloquan - External Sex assigned at 1970 00:00:00 1970 00:00:00 April Sequan Valdes External Smoking Status Start Date Stop Date Source Unknown if ever smoked Acces Maty Smokes tobacco daily 2024-04-06 00:00:00 April Duran Medications Ordered Medication Name Filled Medication Name Start Date Stop Date Current Medication? Ordering Clinician Indication Dosage Frequency Signature (SIG) Comments Components Source Metformin HCl 500 MG oral Tablet 10-30 00:00: 00 Yes [id number] 500mg Q.5D Take 1 tablet (500 mg total) by mouth 2 times daily. April coronel Losartan Potassium-H CTZ 100-25 MG oral Tablet 10-30 00:00: 00 01-29 04:59 :00 Yes [id number] 1{tbl} QD Take 1 tablet by mouth daily. April coronel Amlodipine Besylate 10 MG oral Tablet 10-30 00:00: 00 01-29 04:59 :00 Yes [id number] 10mg QD Take 1 tablet (10 mg total) by mouth daily. April coronel Atorvastati n Calcium 20 MG oral Tablet 10-30 00:00: 00 12-26 05:59 :00 Yes [id number] 20mg QD Take 1 tablet (20 mg total) by mouth daily. April coronel Amlodipine Besylate (NORVASC) 5 MG oral Tablet 2023-10 00:00: 00 10-30 00:00 :00 No [id number] 5mg QD Take 1 tablet (5 mg total) by mouth daily. April coronel Losartan Potassium-H CTZ 100-25 MG oral Tablet 2023-10 00:00: 00 10-30 00:00 :00 No [id number] 1{tbl} QD Take 1 tablet by mouth daily. April coronel Atorvastati n Calcium 20 MG oral Tablet 2023-10 00:00: 00 10-30 00:00 :00 No [id number] 20mg QD Take 1 tablet (20 mg [...] 2023-10 00:00: 00 10-02 00:00 :00 No [id number] 1{tbl} QD Take 1 tablet by mouth daily. April coronel Metformin HCl 500 MG oral Tablet 2023-10 00:00: 00 10-30 00:00 :00 No [id number] 500mg Q.5D Take 1 tablet (500 mg total) by mouth 2 times daily. April coronel Glucose Blood in vitro Strip 04-09 00:00: 00 Yes [id number] 1{each} QD 1 each by other route daily. April coronel Blood Glucose Monitoring Suppl (Blood Glucose Monitor System) w/Device does not apply Kit 04-09 00:00: 00 Yes [id number] Monitor blood glucose daily and as needed. April coronel Lancets does not apply Misc 04-09 00:00: 00 Yes [id number] 1{devic e} QD 1 device by other route daily to check sugars. April coronel Atorvastati n Calcium 20 MG oral Tablet 04-09 00:00: 00 Yes [id number] 20mg QD Take 1 tablet (20 mg total) by mouth daily. April coronel Losartan Potassium (COZAAR) 50 MG oral Tablet 04-06 00:00: 00 08-14 00:00 :00 No [id number] 50mg QD Take 1 tablet (50 mg total) by mouth daily. April coronel Metformin HCl 500 MG oral Tablet 04-03 00:00: 00 Yes [id number] 500mg Q.5D Take 1 tablet (500 mg total) by mouth 2 times daily. April coronel Vital Signs Vital Name Observation Time Observation Value Comments S herbert Systolic blood pressure 2024-10-30 15:39:00 158 mm[Hg] April dawn - External Diastolic blood pressure 2024-10-30 15:39:00 90 mm[Hg] April dawn - External Heart rate 2024-10-30 15:35:00 75 /min Kelse y Seybold - External Body temperature 2024-10-30 15:35:00 35.56 [...] 97 /min April Seybo ld - External Body height 2024-08-14 19:56:00 167.6 cm Maral ey Seybold - External Body weight 2024-08-14 19:56:00 84.46 kg Maral ey Seybold - External BMI 2024-08-14 19:56:00 30.05 kg/m2 Maral ey Seybold - External Systolic blood pressure 2024-08-14 19:56:00 186 mm[Hg] April Seybo ld - External Diastolic blood pressure 2024-08-14 19:56:00 116 mm[Hg] April Seybo ld - External Heart rate 2024-08-14 19:56:00 62 /min Kelse y Seybold - External Body temperature 2024-08-14 19:56:00 36.56 Tanna April Seybold - External Respiratory rate 2024-08-14 19:56:00 16 /min April Seybold - External Systolic blood pressure 2024-07-24 [...] [facility] Care Department Encounter ID Source 2025-01-12 16:00:00 2025-01-12 16:00:00 Outpatient ORESTES TEZ [facility] [id number] [facility] 2025-01-08 00:00:00 2025-01-08 00:00:00 Outpatient MD APRIL GUERRA [id number] [facility] 2025-01-05 00:00:00 2025-01-05 00:00:00 Outpatient DWIGHT ADHIKARI [id number] [facility] 2024-10-30 09:30:00 2024-10-30 09:30:00 Outpatient DWIGHT ADHIKARI [id number] [facility] 2024-10-26 15:30:00 2024-10-26 15:30:00 Outpatient DWIGHT ADHIKARI [id number] [facility] 2024-10-23 16:00:00 2024-10-23 16:00:00 Outpatient DWIGHT ADHIKARI [id number] [facility] 2024-10-11 00:00:00 2024-10-11 00:00:00 Outpatient APRIL JOHNSON [id number] [facility] 2024-10-02 16:00:00 2024-10-02 16:00:00 Outpatient DENNISE CARRINGTON [id number] [facility] 2024-10-02 15:30:00 2024-10-02 15:30:00 Outpatient DWIGHT ADHIKARI [id number] [facility] 2024-09-22 00:00:00 2024-09-22 00:00:00 Outpatient DWIGHT ADHIKARI [id number] [facility] 2024-09-14 15:00:00 2024-09-14 15:00:00 Outpatient DWIGHT ADHIKARI [id number] [facility] 2024-08-26 00:00:00 2024-08-26 00:00:00 Outpatient DWIGHT ADHIKARI [id number] April [facility] 2024-08-14 15:00:00 2024-08-14 15:00:00 Outpatient DWIGHT ADHIKARI APRIL JOHNSON [id number] April [facility] 2024-08-07 15:30:00 2024-08-07 15:30:00 Outpatient DWIGHT ADHIKARI APRIL JOHNSON [id number] April [facility] 2024-08-07 00:00:00 2024-08-07 00:00:00 Outpatient MD APRIL GUERRA [id number] [facility] 2024-07-28 16:30:00 2024-07-28 16:30:00 Outpatient DWIGHT ADHIKARI APRIL JOHNSON [id number] April [facility] 2024-07-24 15:00:00 2024-07-24 15:00:00 Outpatient DORCAS CARLITOSANDIE [facility] [id number] [facility] 2024-07-24 14:15:00 2024-07-24 14:15:00 Outpatient LAB53 APRIL JOHNSON [id number] [facility] 2024-07-24 13:30:00 2024-07-24 13:30:00 Outpatient JAMIR VERDUGO APRIL JOHNSON [id number] April [facility] 2024-07-13 13:30:00 2024-07-13 13:30:00 Outpatient DWIGHT ADHIKARI APRIL JOHNSON [id number] April [facility] 2024-04-06 15:40:00 2024-04-06 15:40:00 Outpatient LABIsabella APRIL JOHNSON [id number] [facility] 2024-04-06 14:30:00 2024-04-06 14:30:00 Outpatient DWIGHT ADHIKARI APRIL JOHNSON [id number] [facility] 2022-05-05 08:00:00 2022-05-05 08:00:00 Outpatient SAMEER CELESTIN [id number] [facility] 2021-01-06 13:56:00 2021-01-06 13:56:00 Outpatient NURSE, NURSE [facility] [id number] [facility] 2021-01-06 13:56:00 2021-01-06 13:56:00 Outpatient NURSE, NURSE [facility] [id number] [facility] Notes Date/Time Note Provider Source 2024-10-30 09:37:20 Chief Complaint Patient presents with Blood Pressure 3 week follow up. Jann Sousa MA [facility] 2024-08-14 14:56:23 Magan Arredondo is a 54 year old male Chief Complaint Patient presents with Follow-Up Visit BP Alyson Drake CMA II [facility] 2024-07-24 13:52:39 Chief Complaint Patient presents with Follow-up Fasting Jeffrey Kaminski LVN [facility] 2024-04-06 14:52:09 Magan Arredondo is a 53 year old male Chief Complaint Patient presents with Physical Fasting Alyson Drake CMA II [facility]
[2025-01-09 13:06] LABS: Specific Gravity 1.023 (1.005-1.030); Urine Bilirubin NEGATIVE (Negative); Urine Blood Negative (Negative); Urine Clarity Clear (Clear); Urine Color Light-Yellow (Yellow); Urine Glucose NEGATIVE (Negative); Urine Ketones NEGATIVE (Negative); Urine Microscopic Reflex YN NO UMIC; Urine Nitrite NEGATIVE (Negative); Urine Protein NEGATIVE (Negative); Urine Urobilinogen Normal (Normal)
--- NOTE | 2025-01-09 14:08 | RAD REPORT ---
EXAMINATION: LUMBAR SPINE MULTIPLE VIEWS CLINICAL INDICATION: Male, 54 years old. PAIN TECHNIQUE: Multiple views of the lumbar spine were obtained. COMPARISON: 06/02/2023 FINDINGS: For purposes of this dictation, it is assumed that there are 5 lumbar type vertebral bodies. ALIGNMENT: There is normal alignment of the lumbar spine. BONES: Vertebral bodies are normal in height. No aggressive osseous lesions. DISCS: Mild disc thinning with small endplate ossified L4-5 and L5-S1. IMPRESSION: No acute lumbar spine abnormality. Mild lower lumbar spondylosis.
[2025-01-09] MEDS ORDERED: KETOROLAC 30 MG/ML INJ ONE (14:35)
--- NOTE | 2025-01-09 14:39 | EDPHYS ---
Physician Documentation [facility] Name: Sixto Arredondo Age: 54 yrs Sex: Male : 1970 Arrival Date: 01/09/2025 Time: 11:24 Bed DX3 Private MD: ED Physician Nikos Rodriguez HPI: 01/09 13:14 This 54 yrs old Black Male presents to ER via Ambulatory with complaints of Low Back ms3 Pain. 13:14 54-year-old male with past medical history of diabetes, diverticulitis, ms3 hypercholesterolemia, hypertension presents to the emergency department for back pain that began yesterday. Patient states he has repetitive lifting of approximately 25 pound bags while working. Patient has not previously experienced this discomfort. He states the discomfort was an 8/10 and is now rated a 5/10 after waiting in the lobby. Patient denies urinary or bladder incontinence, saddle anesthesia, or lower extremity weakness.. Historical: - Allergies: 11:42 PENICILLINS; iw - PMHx: 11:42 diabetes mellitus; Diverticulitis; Hypercholesterolemia; Hypertensive disorder; iw - PSHx: 11:42 None; iw - Immunization history:: Adult Immunizations not up to date. - Infectious Disease History:: Denies. - Social history:: Smoking status: Patient reports the use of cigarette tobacco products, smokes one-half pack cigarettes per day. ROS: 13:14 Constitutional: Negative for fever, and chills. Cardiovascular: Negative for chest ms3 pain, and palpitations. Respiratory: Negative for shortness of breath, cough, wheezing, and pleuritic chest pain, Abdomen/GI: Negative for abdominal pain, nausea, vomiting, diarrhea, and constipation, Skin: Negative for injury, rash, and discoloration, 13:14 Back: Positive for Lumbar back pain, Exam: 13:14 Constitutional: This is a well developed, well nourished patient who is awake, alert, ms3 and in no acute distress. Chest/axilla: Normal chest wall appearance and motion. Nontender with no deformity. Cardiovascular: Regular rate and rhythm with a normal S1 and S2. No gallops, murmurs, or rubs. Normal PMI, no JVD. No pulse deficits. Respiratory: Lungs have equal breath sounds bilaterally, clear to auscultation and percussion. No rales, rhonchi or wheezes noted. No increased work of breathing, no retractions or nasal flaring. Abdomen/GI: Soft, non-tender, with normal bowel sounds. No distension or tympany. No guarding or rebound. No evidence of tenderness throughout. Skin: Warm, dry with normal turgor. Normal color with no rashes, no lesions, and no evidence of cellulitis. 13:14 Back: pain, that is mild, of the left low back and right low back, ROM is normal, normal spinal alignment noted, CVA tenderness, is absent, vertebral tenderness, is not appreciated, muscle spasm, is appreciated in the left low back and right low back, Vital Signs: 11:40 BP 154 / 102; Pulse 72; Resp 16; Pulse Ox 99% on R/A; Weight 86.18 kg; Height 5 ft. 6 iw in. ; Pain 6/10; 11:40 Body Mass Index 30.67 (86.18 kg, 167.64 cm) iw 11:40 Pain Scale: Adult iw MDM: 12:37 Medical Screening Exam initiated ms3 13:14 Differential diagnosis: arthritis, strain, fracture, sciatica, Herniated disc UTI. ms3 14:38 Data reviewed: vital signs, nurses notes, lab test result(s), radiologic studies, and ms3 as a result, I will discharge patient. I considered the following discharge prescriptions or medication management in the emergency department Medications were administered in the Emergency Department. See MAR. Counseling: I had a detailed discussion with the patient and/or guardian regarding the historical points, exam findings, and any diagnostic results supporting the discharge/admit diagnosis, lab results, radiology results, the need for outpatient follow up, to return to the emergency department if symptoms worsen or persist or if there are any questions or concerns that arise at home. Response to treatment: the patient's symptoms have markedly improved after treatment, and as a result, I will discharge patient. Special discussion: I discussed with the patient/guardian in detail that at this point there is no indication for admission to the hospital. It is understood, however, that if the symptoms persist or worsen the patient needs to return immediately for re-evaluation. ED course: On reevaluation patient improved, alert and orient x 4, no apparent distress, nontoxic-appearing, speaking full sentences, ambulatory in the emergency department. Patient is without bowel or bladder incontinence or retention, saddle anesthesia, or weakness. Patient to follow-up with his primary care physician 2 to 3 days. Patient understands and agrees with plan. All questions were answered. Return precautions discussed include worsening symptoms, or any other concerns. 01/09 12:21 Order name: Urinalysis w/ reflexes; Complete Time: 13:14 ms3 01/09 12:36 Order name: Lumbar Spine (3 Views) XRAY; Complete Time: 14:37 ms3 Administered Medications: 14:47 Drug: Ketorolac IM 15 mg IM once Route: IM; Site: left deltoid; iw 14:49 Follow up: Response: No adverse reaction iw Disposition Summary: 01/09/25 14:38 Discharge Ordered Notes: Location: Home ms3 Condition: Stable ms3 Diagnosis - Low back pain ms3 Followup: ms3 - With: Aidan Toth DO - When: 2 - 3 days - Reason: Recheck today's complaints Discharge Instructions: - Discharge Summary Sheet ms3 - Acute Back Pain, Adult ms3 Forms: - Work release form bd - Medication Reconciliation Form ms3 - Antibiotic Education ms3 - Prescription Opioid Use ms3 - Patient Portal Instructions ms3 - Leadership Thank You Letter ms3 Prescriptions: - Ibuprofen 600 mg Oral Tablet - take 1 tablet ORAL route every 6 hours As needed take with food; 30 tablet; ms3 Refills: 0, Product Selection Permitted - Cyclobenzaprine 5 mg Oral Tablet - take 1 tablet ORAL route 3 times per day As needed; 15 tablet; Refills: 0, ms3 Product Selection Permitted Signatures: Dispatcher [employer] Susan Gonzales RN RN iw Sims, Marcus, DO DO ms3 Corrections: (The following items were deleted from the chart) 12:22 12:22 Urinalysis+U.LAB.BRZ ordered. BLOSSOM CERRATO
--- NOTE | 2025-01-09 14:39 | ER ---
Nurse's Notes [facility] Name: Sixto Arredondo Age: 54 yrs Sex: Male : 1970 Arrival Date: 01/09/2025 Time: 11:24 Bed DX3 Private MD: Diagnosis: Low back pain Presentation: 01/09 11:40 Chief complaint: Patient states: lower back pain since yesterday , not bad but i was iw sent home today from work, I just woke up with some tightness , worse when he twists and turns. Coronavirus screen: At this time, the client does not indicate any symptoms associated with coronavirus-19. Ebola Screen: No symptoms or risks identified at this time. Initial Sepsis Screen: Does the patient meet any 2 criteria? No. Patient's initial sepsis screen is negative. Does the patient have a suspected source of infection? No. Patient's initial sepsis screen is negative. Risk Assessment: Do you want to hurt yourself or someone else? Patient reports no desire to harm self or others. Onset of symptoms was January 08, 2025. 11:40 Method Of Arrival: Ambulatory iw 11:40 Acuity: DELORES 4 iw Triage Assessment: 11:43 General: Appears in no apparent distress. Behavior is calm, cooperative. Pain: iw Complains of pain in back. Historical: - Allergies: 11:42 PENICILLINS; iw - PMHx: 11:42 diabetes mellitus; Diverticulitis; Hypercholesterolemia; Hypertensive disorder; iw - PSHx: 11:42 None; iw - Immunization history:: Adult Immunizations not up to date. - Infectious Disease History:: Denies. - Social history:: Smoking status: Patient reports the use of cigarette tobacco products, smokes one-half pack cigarettes per day. Assessment: 11:31 Reassessment: pt not in lobby when called, registration states pt went to car to make a iw phone call. Vital Signs: 11:40 BP 154 / 102; Pulse 72; Resp 16; Pulse Ox 99% on R/A; Weight 86.18 kg; Height 5 ft. 6 iw in. ; Pain 6/10; 11:40 Body Mass Index 30.67 (86.18 kg, 167.64 cm) iw 11:40 Pain Scale: Adult iw ED Course: 11:26 Patient arrived in ED. im 11:42 Triage completed. iw 11:43 Arm band placed on. iw 12:21 Nikos Rodriguez DO is Attending Physician. ms3 13:00 Urinalysis w/ reflexes Sent. bc6 14:05 Lumbar Spine (3 Views) XRAY In Process Unspecified. EDMS 14:38 Aidan Toth DO is Referral Physician. ms3 14:47 Susan Morales, RN is Primary Nurse. iw Administered Medications: 14:47 Drug: Ketorolac IM 15 mg IM once Route: IM; Site: left deltoid; iw 14:49 Follow up: Response: No adverse reaction iw Outcome: 14:38 Discharge ordered by MD. ms3 14:46 Discharged to home ambulatory, iw 14:46 Condition: good 14:46 Discharge instructions given to patient, Instructed on discharge instructions, follow up and referral plans. medication usage, Demonstrated understanding of instructions, follow-up care, medications, Prescriptions given X 2, 14:47 Patient left the ED. iw Signatures: Dispatcher [employer] EDMS Susan Morales RN RN iw Nikos Rodriguez DO DO ms3 ChapisMaribell oneal bc6 Cesilia Rivas im
[2025-01-09 17:48] VITALS: BP 154/102; O2SAT 99
== END 2025-01-09 14:47 | disposition home or self-care (01) ==
LOC: ER 11:24
DX: M54.50 Low back pain, unspecified (principal); F17.210 Nicotine dependence, cigarettes, uncomplicated
CPT/HCPCS: 72100; 81003; 96372; 99284

== ENCOUNTER 2025-02-26 15:55 | Emergency (ER) | payer OTHER ==
--- OUTSIDE RECORDS SUMMARY | 2025-02-26 15:58 | XMS REPORT | Continuity of Care Document ---
Author Name Unknown Address [address] [place] [address] [address] [place] [address] [address] [facility] Address [address] [facility] [address] [place] [address] Care Team Providers Care Street Vendor Name Role Phone JOANA REAGAN Attending Clinician UnavailASHLEIGH Marroquin JR Attending Clinician TEZ España Attending Clinician Unawaqar JAEGER MD Attending Clinician UnavailDWIGHT Marc Attending Clinician UnavailDENNISE Rivera Attending Clinician Unavailable CARLITO TOSCANO Attending Clinician Unavailroger kwok LAB53 Attending Clinician Unavailable JAMIR VERDUGO Attending Clinician Unavailable LAB47 Attending Clinician Unavailable SAMEER CELESTIN Attending Clinician Unavailable NURSE, NURSE Attending Clinician Unavailable Payers Payer Name Policy Type Policy Number Effective Date Expirati on Date Source [facility] FABI SZYMANSKI COPAY FOCUS 9 [id number] 2024 00:00:00 Problems Condition Name Condition Details Condition Category Status Onset Date Resolution Date Last Treatment Date Treating Clinician Comments Source Essential hypertensi on Essential hypertensi on Disease Active 2023-10 2- 00:00: 00 April coronel Type 2 diabetes mellitus with hyperlipid emia (multi HCC) Type 2 diabetes mellitus with hyperlipid emia (multi HCC) Disease Active 2023-10 0-16 00:00: 00 April coronel Type 2 diabetes mellitus without complicati on, without long-term current use of insulin (multi HCC) Type 2 diabetes mellitus without complicati on, without long-term current use of insulin (multi HCC) Disease Active 16 00:00: 00 April Armendariza l Social History Social Habit Start Date Stop Date Quantity Comments Source Sexual orientation Sandra hanna Shashank - External History of tobacco use Cigarette Smoker April saleem - External Alcoholic beverage intake 2024-10-02 00:00:00 2024-10-02 00:00:00 .57 /d April Encarnacion - External History of Social function 2024-10-02 00:00:00 2024-10-02 00:00:00 April Encarnacion - External Alcohol Comment 2024-04-06 00:00:00 2024-04-06 00:00:00 Occasional April Encarnacion - Roger Cigarettes smoked current (pack per day) - Reported 2024-04-06 00:00:00 2024-04-06 00:00:00 April Valdes External Cigarette pack-years 2024-04-06 00:00:00 2024-04-06 00:00:00 April Encarnacion - External Tobacco use and exposure 2024-04-06 00:00:00 2024-04-06 00:00:00 Smokeless tobacco non-user April Encarnacion - External Sex 2022-05-04 11:54:32 2022-05-04 11:54:32 Male (finding) April Encarnacion - External Sex [birth year] at 1970 00:00:00 1970 00:00:00 April Encarnacion - Roger Smoking Status Start Date Stop Date Source Unknown if ever smoked Acces sHenicolette Smokes tobacco daily 2024-04-06 00:00:00 April Encarnacion - External Medications Ordered Medication Name Filled Medication Name Start Date Stop Date Current Medication? Ordering Clinician Indication Dosage Frequency Signature (SIG) Comments Components Source Metformin HCl 500 MG oral Tablet 10-30 00:00: 00 Yes [id number] 500mg Q.5D Take 1 tablet (500 mg total) by mouth 2 times daily. April Armendariza berna Losartan Potassium-H CTZ 100-25 MG oral Tablet 10-30 00:00: 00 01-29 04:59 :00 No [id number] 1{tbl} QD Take 1 tablet by mouth daily. April coronel Amlodipine Besylate 10 MG oral Tablet 10-30 00:00: 00 01-29 04:59 :00 No [id number] 10mg QD Take 1 tablet (10 mg total) by mouth daily. April coronel Atorvastati n Calcium 20 MG oral Tablet 10-30 00:00: 00 12-26 05:59 :00 No [id number] 20mg QD Take 1 tablet (20 mg total) by mouth daily. April coronel Amlodipine Besylate (NORVASC) 5 MG oral Tablet 2023-10 00:00: 00 10-30 00:00 :00 No [id number] 5mg QD Take 1 tablet (5 mg total) by mouth daily. April coronel Losartan Potassium-H CTZ 100-25 MG oral Tablet 2023-10 00:00: 00 10-30 00:00 :00 No [id number] 1{tbl} QD Take 1 tablet by mouth daily. April coronel Atorvastati n Calcium 20 MG oral Tablet 2023-10 00:00: 00 10-30 00:00 :00 No [id number] 20mg QD Take 1 tablet (20 mg [...] 2023-10 00:00: 00 10-02 00:00 :00 No [id number] 1{tbl} QD Take 1 tablet by mouth daily. April coronel Metformin HCl 500 MG oral Tablet 2023-10 00:00: 00 10-30 00:00 :00 No [id number] 500mg Q.5D Take 1 tablet (500 mg total) by mouth 2 times daily. April coronel Glucose Blood in vitro Strip 04-09 00:00: 00 Yes [id number] 1{each} QD 1 each by other route daily. April coronel Blood Glucose Monitoring Suppl (Blood Glucose Monitor System) w/Device does not apply Kit 04-09 00:00: 00 Yes [id number] Monitor blood glucose daily and as needed. April coronel Lancets does not apply Misc 04-09 00:00: 00 Yes [id number] 1{devic e} QD 1 device by other route daily to check sugars. April coronel Atorvastati n Calcium 20 MG oral Tablet 04-09 00:00: 00 Yes [id number] 20mg QD Take 1 tablet (20 mg total) by mouth daily. April coronel Losartan Potassium (COZAAR) 50 MG oral Tablet 04-06 00:00: 00 08-14 00:00 :00 No [id number] 50mg QD Take 1 tablet (50 mg total) by mouth daily. April coronel Metformin HCl 500 MG oral Tablet 04-03 00:00: 00 Yes [id number] 500mg Q.5D Take 1 tablet (500 mg total) by mouth 2 times daily. April coronel Vital Signs Vital Name Observation Time Observation Value Comments S herbert Systolic blood pressure 2024-10-30 15:39:00 158 mm[Hg] April dawn - External Diastolic blood pressure 2024-10-30 15:39:00 90 mm[Hg] April Seybo ld - External Heart rate 2024-10-30 15:35:00 75 /min Blaynese y Seybold - External Body temperature 2024-10-30 15:35:00 35.56 Tanna April Seybold - External Respiratory rate 2024-10-30 15:35:00 16 /min April Portilloybold - External Body height 2024-10-30 15:35:00 167.6 cm Maral ey Seybold - External Body weight 2024-10-30 15:35:00 86.728 kg Maral ey Seybold - External BMI 2024-10-30 15:35:00 30.86 kg/m2 Maral ey Seybold - External Oxygen saturation in Arterial blood by Pulse oximetry 2024-10-30 15:35:00 97 /min April Tilleyo ld - External Systolic blood pressure 2024-10-02 22:20:00 168 mm[Hg] April Portilloybo ld - External Diastolic blood pressure 2024-10-02 22:20:00 89 mm[Hg] April Portilloybo ld - External Heart rate 2024-10-02 22:20:00 98 /min Jessie y Seybold - External Body temperature 2024-10-02 [...] Pulse oximetry 2024-10-02 22:20:00 97 /min April Portilloybo ld - External Body temperature 2024-08-14 19:56:00 36.56 [...] 62 /min Kelse y Seybold - External Systolic blood pressure 2024-07-24 [...] End Date/Time Encounter Type Admission Type Attending [facility] Care Department Encounter ID Source 2025-02-28 15:00:00 2025-02-28 15:00:00 Outpatient JO[facility]AGAN [id number] [facility]25-02-02 16:30:00 2025-02-02 16:30:00 Outpatient ASHLEIGH AYALA JR [id number] [facility] 2025-01-12 16:00:00 2025-01-12 16:00:00 Outpatient TEZ CARLISLE [id number] [facility] 2025-01-08 00:00:00 2025-01-08 00:00:00 Outpatient MD APRIL GUERRA [id number] [facility] 2025-01-05 00:00:00 2025-01-05 00:00:00 Outpatient DWIGHT ADHIKARI [id number] [facility] 2024-10-30 09:30:00 2024-10-30 09:30:00 Outpatient DWIGHT ADHIKARI [id number] [facility] 2024-10-26 15:30:00 2024-10-26 15:30:00 Outpatient DWIGHT ADHIKARI [id number] [facility] 2024-10-23 16:00:00 2024-10-23 16:00:00 Outpatient DWIGHT ADHIKARI [id number] [facility] 2024-10-11 00:00:00 2024-10-11 00:00:00 Outpatient APRIL JOHNSON [id number] [facility] 2024-10-02 16:00:00 2024-10-02 16:00:00 Outpatient DENNISE CARRINGTON [id number] [facility] 2024-10-02 15:30:00 2024-10-02 15:30:00 [facility] [id number] [facility]:00 2024-09-22 00:00:00 Outpatient DWIGHT ADHIKARI APRIL JOHNSON [id number] April [facility] 2024-09-14 15:00:00 2024-09-14 15:00:00 Outpatient DWIGHT ADHIKARI APRIL JOHNSON [id number] [facility] 2024-08-26 00:00:00 2024-08-26 00:00:00 Outpatient DWIGHT ADHIKARI APRIL JOHNSON [id number] April [facility] 2024-08-14 15:00:00 2024-08-14 15:00:00 Outpatient DWIGHT ADHIKARI APRIL JOHNSON [id number] April [facility] 2024-08-07 15:30:00 2024-08-07 15:30:00 Outpatient DWIGHT ADHIKARI APRIL JOHNSON [id number] April [facility] 2024-08-07 00:00:00 2024-08-07 00:00:00 Outpatient MD APRIL GUERRA [id number] [facility] 2024-07-28 16:30:00 2024-07-28 16:30:00 Outpatient DWIGHT ADHIKARI APRIL JOHNSON [id number] [facility] 2024-07-24 15:00:00 2024-07-24 15:00:00 Outpatient BEVERLEYBEVERLEYRoger CARLITO [id number] [facility] 14:15:00 2024-07-24 14:15:00 Outpatient LAB53 [facility] [id number] [facility]24-[facility]-24 13:30:00 2024-07-24 13:30:00 Outpatient JAMIR VERDUGO APRIL JOHNSON [id number] [facility] 2024-07-13 13:30:00 2024-07-13 13:30:00 Outpatient DWIGHT ADHIKARI APRIL JOHNSON [id number] April Seybold 2024-04-06 15:40:00 2024-04-06 15:40:00 Outpatient LAB47 APRIL JOHNSON [id number] April Seybold 2024-04-06 14:30:00 2024-04-06 14:30:00 Outpatient DWIGHT ADHIKARISEY [id number] April [facility] 2022-05-05 08:00:00 2022-05-05 08:00:00 Outpatient SAMEER CELESTINSEY [id number] April [facility] 2021-01-06 13:56:00 2021-01-06 13:56:00 Outpatient NURSE, NURSE [facility] [id number] [facility] 2021-01-06 13:56:00 2021-01-06 13:56:00 Outpatient NURSE, NURSE [facility] [id number] [facility] Notes Date/Time Note Provider Source 2024-10-30 09:37:20 Chief Complaint Patient presents with Blood Pressure 3 week follow up. Jann Sousa MA [facility] 2024-08-14 14:56:23 Magan Arredondo is a 54 year old male Chief Complaint Patient presents with Follow-Up Visit BP Alyson Drake CMA II [facility] 2024-07-24 13:52:39 Chief Complaint Patient presents with Follow-up Fasting Jeffrey Kaminski LVN [facility] 2024-04-06 14:52:09 Magan Arredondo is a 53 year old male Chief Complaint Patient presents with Physical Fasting Alyson Drake CMA II [facility]
[2025-02-26] MEDS ORDERED: KETOROLAC 30 MG/ML INJ ONE (16:47)
[2025-02-26] MEDS ORDERED: NA CHLORIDE 0.9% 1,000 ML ONE (16:47)
[2025-02-26] MEDS ORDERED: ONDANSETRON 4 MG/2 ML VIAL ONE (16:47)
[2025-02-26 17:21] LABS: Absolute Eosinophils 0.1 K/uL (0-0.5); Absolute Lymphocytes (CBC) 3.7 K/uL (0.7-4.9); Absolute Monocytes 1.1 K/uL (0.1-1.3); Absolute Neutrophil 7.9 K/uL (1.8-8.0); Basophils % 0.3 % (0-1.3); Eosinophils % 0.6 % (0-4.4); Hematocrit 40.1 % (39.6-49.0); Hemoglobin 13.5 g/dL (13.6-17.9); Lymphocytes % 29.1 % (15.3-44.8); MCH 28.4 pg (27.0-35.0); MCHC 33.7 g/dL (32.0-36.0); MCV 84.4 fL (80-100); Monocytes % 8.6 % (3.3-12.3); Neutrophils % 61.4 % (41.7-73.7); Platelets 275 thou/uL (152-406); RBC Red Blood Cell Count 4.75 M/uL (4.33-5.43); Red Cell Distribution Width 14.2 % (12.1-15.2)
[2025-02-26 17:39] LABS: Albumin 3.4 g/dL (3.4-5.0); Albumin/Globulin Ratio 0.7 (1.1-1.8); Anion Gap 8.6 mEq/L (5.0-15.0); Bilirubin Total 0.2 mg/dL (0.2-1.0); Globulin 4.6 g/dL (2.3-3.5); Potassium 3.6 mEq/L (3.5-5.1)
--- NOTE | 2025-02-26 18:41 | RAD REPORT ---
EXAMINATION: CT ABDOMEN AND PELVIS WITH CONTRAST CLINICAL INDICATION: Abdominal pain TECHNIQUE: CT abdomen and pelvis was performed, after the administration of 100 cc Isovue-300.. Sagit aidee and coronal reconstructions were obtained. One or more of the following dose reduction techniques were used: Automated exposure control, adjustment of the mA and kV according to patient si ze, and iterative reconstruction. Unless otherwise specified, incidental findings do not require dedicated imaging follow-up. MC8338. Oral contrast was not given which limits evaluation of bowel and appendix. COMPARISON: .2022 FINDINGS: Liver, spleen, pancreas, adrenals and kidneys appear unremarkable Normal appendix. Diverticula stem from the colon.. Mild to moderate stranding adjacent to the descending colon. No gricelda e air. No abscess. : IMPRESSION: Mild to moderate diverticulitis
--- NOTE | 2025-02-26 18:50 | ER ---
Nurse's Notes [facility] Name: Sixto Arredondo Age: 54 yrs Sex: Male : 1970 Arrival Date: 02/26/2025 Time: 15:55 Bed 15 Private MD: Diagnosis: Diverticulitis of large intestine without perforation or abscess without bleeding Presentation: 02/26 16:16 Chief complaint: Patient states: Lower abdominal pain. nausea, constipation x 1 day. ap3 Coronavirus screen: At this time, the client does not indicate any symptoms associated with coronavirus-19. Ebola Screen: No symptoms or risks identified at this time. Initial Sepsis Screen: Does the patient meet any 2 criteria? No. Patient's initial sepsis screen is negative. Does the patient have a suspected source of infection? No. Patient's initial sepsis screen is negative. Risk Assessment: Do you want to hurt yourself or someone else? Patient reports no desire to harm self or others. Onset of symptoms was February 25, 2025. 16:16 Method Of Arrival: Ambulatory ap3 16:16 Method Of Arrival: Ambulatory ap3 16:16 Acuity: DELORES 3 ap3 Triage Assessment: 16:17 General: Appears in no apparent distress. uncomfortable, Behavior is calm, cooperative, ap3 appropriate for age. Pain: Complains of pain in right lower quadrant and left lower quadrant Pain currently is 6 out of 10 on a pain scale. GI: Abdomen is non-distended. Historical: - Allergies: 16:17 PENICILLINS; ap3 - PMHx: 16:17 diabetes mellitus; Diverticulitis; Hypercholesterolemia; Hypertensive disorder; ap3 - Immunization history:: Adult Immunizations unknown. - Infectious Disease History:: Denies. - Social history:: Smoking status: Patient reports the use of cigarette tobacco products, smokes one-half pack cigarettes per day. Screenin:08 [facility] ED Fall Risk Assessment (Adult) History of falling in the last 3 months, db including since admission No falls in past 3 months (0 pts) Confusion or Disorientation No (0 pts) Intoxicated or Sedated No (0 pts) Impaired Gait No (0 pts) Mobility Assist Device Used No (0 pt) Altered Elimination No (0 pt) Score/Fall Risk Level 0 - 2 = Low Risk Oriented to surroundings, Maintained a safe environment. Abuse screen: Denies threats or abuse. Denies injuries from another. Nutritional screening: No deficits noted. Tuberculosis screening: No symptoms or risk factors identified. Assessment: 17:00 Reassessment: Patient appears in no apparent distress at this time. Patient and/or db family updated on plan of care and expected duration. Pain level reassessed. Patient is alert, oriented x 3, equal unlabored respirations, skin warm/dry/pink. General: Appears in no apparent distress. comfortable, Behavior is calm, cooperative. Pain: Complains of pain in left lower quadrant and right lower quadrant. Neuro: Level of Consciousness is awake, alert, obeys commands, Oriented to person, place, time, situation. Cardiovascular: No deficits noted. Respiratory: Airway is patent Respiratory effort is even, unlabored, Respiratory pattern is regular, symmetrical. GI: Bowel sounds present X 4 quads. Abd is soft X 4 quads Abd is non tender. : No deficits noted. No signs and/or symptoms were reported regarding the genitourinary system. 18:25 Reassessment: Patient appears in no apparent distress at this time. Patient and/or db family updated on plan of care and expected duration. Pain level reassessed. Patient is alert, oriented x 3, equal unlabored respirations, skin warm/dry/pink. Patient states feeling better. Patient states symptoms have improved. Vital Signs: 16:16 BP 143 / 97; Pulse 60; Resp 17; Temp 98; Pulse Ox 99% ; Weight 86.18 kg; Height 5 ft. 6 ap3 in. ; Pain 6/10; 17:04 BP 144 / 92; Pulse 65; Resp 16; Pulse Ox 96% ; db 17:30 BP 149 / 100; Pulse 67; Resp 16; Pulse Ox 97% ; db 18:22 BP 169 / 102; Pulse 70; Resp 16; Pulse Ox 96% ; db 16:16 Body Mass Index 30.67 (86.18 kg, 167.64 cm) ap3 16:16 Pain Scale: Adult ap3 ED Course: 16:01 Patient arrived in ED. cj3 16:11 [facility] sb4 16:11 Alex Montano MD is Attending Physician. sb4 16:17 Triage completed. ap3 16:17 Arm band placed on right wrist. ap3 16:29 Radiology exam delayed due to lab results not completed at this time. (BUN/Creatinine) vm2 IV insertion attempt and/or patient not having appropriate IV at this time. 16:36 Danielle Solis, RN is Primary Nurse. db 17:00 Initial lab(s) drawn, by me, sent to lab. Inserted saline lock: 20 gauge in right db antecubital area, using aseptic technique. Blood collected. Flushed with 10 mL NS. 17:08 Patient has correct armband on for positive identification. Bed in low position. Call db light in reach. Side rails up X 1. Pulse ox on. NIBP on. Pillow given. 17:54 CT Abd/Pelvis - IV Contrast Only In Process Unspecified. EDMS 18:49 Getachew Roberts MD is Referral Physician. sb4 19:03 Provided Education on: DISCHARGE AND FOLLOWUP. db 19:03 No provider procedures requiring assistance completed. IV discontinued, intact, db bleeding controlled, No redness/swelling at site. Administered Medications: 17:01 Drug: TORadol - Ketorolac IVP 15 mg IVP once Route: IVP; Site: right antecubital; db 19:02 Follow up: Response: No adverse reaction db 17:01 Drug: Ondansetron IVP 4 mg IVP once; over 2 minutes Route: IVP; Site: right antecubital;db 19:02 Follow up: Response: No adverse reaction db 17:01 Drug: NS 0.9% IV 1000 ml IV at 1 bolus Per protocol; to be given as a bolus over 60 db minutes Route: IV; Rate: 1 bolus; Site: right antecubital; 19:02 Follow up: Response: No adverse reaction; IV Status: Completed infusion; IV Intake: db 1000ml 18:55 Drug: Ciprofloxacin PO 500 mg PO once Route: PO; db 19:03 Follow up: Response: No adverse reaction db 18:56 Drug: metroNIDAZOLE PO 500 mg PO once Route: PO; db 19:03 Follow up: Response: No adverse reaction db Medication: 17:00 VIS not applicable for this client. db Intake: 19:02 IV: 1000ml; Total: 1000ml. db Outcome: 18:49 Discharge ordered by . sb4 19:03 Discharged to home ambulatory, db 19:03 Condition: stable 19:03 Discharge instructions given to patient, Instructed on discharge instructions, follow up and referral plans. Prescriptions given X 2, 19:04 Patient left the ED. db Signatures: Dispatcher [employer] EDMN Kaila Morales 2 Tricia Braxton, RN RN ap3 Danielle Solis RN RN Nicole Wellington, PACindy PA-Jaime sb4 Maureen Sykes cj3
--- NOTE | 2025-02-26 18:50 | EDPHYS ---
Physician Documentation [facility] Name: Sixto Arredondo Age: 54 yrs Sex: Male : 1970 Arrival Date: 02/26/2025 Time: 15:55 Bed 15 Private MD: ED Physician Alex Montano HPI: 02/26 17:35 This 54 yrs old Black Male presents to ER via Ambulatory with complaints of Abdominal sb4 Pain - LOWER. 17:35 Lower abdominal pain x 2 days. Reports associated nausea and constipation. States it sb4 feels similar to his prior diverticulitis episodes. Denies any fever, vomiting, blood in his stool. Is not sure when his last flareup was, states he typically responds well to antibiotic therapy.. Historical: - Allergies: 16:17 PENICILLINS; ap3 - PMHx: 16:17 diabetes mellitus; Diverticulitis; Hypercholesterolemia; Hypertensive disorder; ap3 - Immunization history:: Adult Immunizations unknown. - Infectious Disease History:: Denies. - Social history:: Smoking status: Patient reports the use of cigarette tobacco products, smokes one-half pack cigarettes per day. ROS: 17:35 Constitutional: Negative for fever, chills, and weight loss, sb4 17:35 Abdomen/GI: Positive for abdominal pain, nausea, constipation, 17:35 All other systems are negative, Exam: 17:35 Constitutional: This is a well developed, well nourished patient who is awake, alert, sb4 and in no acute distress. Head/Face: Normocephalic, atraumatic. Eyes: Extra-ocular motions intact. Periorbital areas with no swelling, redness, or edema. ENT: Mucous membranes moist. Cardiovascular: Regular rate and rhythm with a normal S1 and S2. Respiratory: No increased work of breathing, no retractions or nasal flaring. Skin: Warm, dry with normal turgor. Normal color with no rashes, no lesions, and no evidence of cellulitis. 17:35 Abdomen/GI: Inspection: abdomen appears normal, Bowel sounds: normal, Palpation: soft, mild abdominal tenderness, in the right lower quadrant and left lower quadrant, Vital Signs: 16:16 BP 143 / 97; Pulse 60; Resp 17; Temp 98; Pulse Ox 99% ; Weight 86.18 kg; Height 5 ft. 6 ap3 in. ; Pain 6/10; 17:04 BP 144 / 92; Pulse 65; Resp 16; Pulse Ox 96% ; db 17:30 BP 149 / 100; Pulse 67; Resp 16; Pulse Ox 97% ; db 18:22 BP 169 / 102; Pulse 70; Resp 16; Pulse Ox 96% ; db 16:16 Body Mass Index 30.67 (86.18 kg, 167.64 cm) ap3 16:16 Pain Scale: Adult ap3 MDM: 16:22 Medical Screening Exam initiated sb4 18:48 Data reviewed: vital signs, nurses notes, lab test result(s), radiologic studies, and sb4 as a result, I will discharge patient. Counseling: I had a detailed discussion with the patient and/or guardian regarding the historical points, exam findings, and any diagnostic results supporting the discharge/admit diagnosis, lab results, radiology results, the need for outpatient follow up, for definitive care, to return to the emergency department if symptoms worsen or persist or if there are any questions or concerns that arise at home. 02/26 16:26 Order name: CBC with Diff; Complete Time: 17:26 sb4 02/26 16:26 Order name: CMP; Complete Time: 17:39 sb4 02/26 16:26 Order name: Lipase; Complete Time: 17:39 sb4 02/26 16:26 Order name: CT Abd/Pelvis - IV Contrast Only; Complete Time: 18:46 sb4 02/26 16:26 Order name: IV Saline Lock; Complete Time: 17:05 sb4 02/26 16:26 Order name: Labs collected and sent; Complete Time: 17:05 sb4 Administered Medications: 17:01 Drug: TORadol - Ketorolac IVP 15 mg IVP once Route: IVP; Site: right antecubital; db 19:02 Follow up: Response: No adverse reaction db 17:01 Drug: Ondansetron IVP 4 mg IVP once; over 2 minutes Route: IVP; Site: right antecubital;db 19:02 Follow up: Response: No adverse reaction db 17:01 Drug: NS 0.9% IV 1000 ml IV at 1 bolus Per protocol; to be given as a bolus over 60 db minutes Route: IV; Rate: 1 bolus; Site: right antecubital; 19:02 Follow up: Response: No adverse reaction; IV Status: Completed infusion; IV Intake: db 1000ml 18:55 Drug: Ciprofloxacin PO 500 mg PO once Route: PO; db 19:03 Follow up: Response: No adverse reaction db 18:56 Drug: metroNIDAZOLE PO 500 mg PO once Route: PO; db 19:03 Follow up: Response: No adverse reaction db Disposition Summary: 02/26/25 18:49 Discharge Ordered Notes: Location: Home sb4 Problem: an ongoing problem sb4 Symptoms: have improved sb4 Condition: Stable sb4 Diagnosis - Diverticulitis of large intestine without perforation or abscess without bleeding sb4 Followup: sb4 - With: Getachew Roberts MD - When: 1 week - Reason: Further diagnostic work-up, Recheck today's complaints, Re-evaluation by your physician Discharge Instructions: - Discharge Summary Sheet sb4 - High-Fiber Eating Plan sb4 - Diverticulitis, [id number] sb4 Forms: - Antibiotic Education sb4 - Patient Portal Instructions sb4 - Leadership Thank You Letter sb4 Prescriptions: - Flagyl 500 mg Oral tablet - take 1 tablet ORAL route every 8 hours for 7 days; 21 tablet; Refills: 0, sb4 Product Selection Permitted - Cipro 500 mg Oral Tablet - take 1 tablet ORAL route every 12 hours for 7 days; 14 tablet; Refills: 0, sb4 Product Selection Permitted Signatures: Dispatcher [employer] Tricia Slater, RN RN Danielle Turpin RN RN Nicole Wellington PA-C PACindy sb4 Corrections: (The following items were deleted from the chart) 16:26 16:26 Abdomen Pelvis W [id number] ordered. EDMS EDMS
[2025-02-26] MEDS ORDERED: metroNIDAZOLE 500 MG TABLET ONE (18:55)
[2025-02-26] MEDS ORDERED: CIPROFLOXACIN HCL 500 MG TAB ONE (18:56)
[2025-02-27 01:04] VITALS: TEMP 98
[2025-02-27 01:10] VITALS: BP 169/102; O2SAT 96
== END 2025-02-26 19:04 | disposition home or self-care (01) ==
LOC: ER 15:55
DX: K57.32 Diverticulitis of large intestine without perforation or abscess without bleeding (principal); E11.9 Type 2 diabetes mellitus without complications; I10 Essential (primary) hypertension; F17.210 Nicotine dependence, cigarettes, uncomplicated
CPT/HCPCS: 96361; 85025; 36415; 83690; 80053; 74177; 96375; 96374; 99284; Q9967; J2405; J7030